=== PATIENT | female | born 1985 | race Caucasian/White ===

== ENCOUNTER 2018-06-14 08:45 | Day surgery (SDC) | payer BC, OTHER ==
[2018-06-14 09:16] VITALS: TEMP 98.4; O2SAT 100
[2018-06-14] MEDS ORDERED: Lactated Ringer's 1,000 ML IV ONE ×2 (12:00→12:34)
[2018-06-14] MEDS ORDERED: Propofol 10 mg/ml Inj (20 ML) ONE ×3 (12:03→12:43)
[2018-06-14] MEDS ORDERED: Midazolam 2 MG/2 ML VIAL ONE ×2 (12:03→12:16)
[2018-06-14] MEDS ORDERED: Lidocaine Hydrochloride 5 ML INJ ONE (12:03)
[2018-06-14 13:47] LABS: BASO # 0.1 K/uL (0.0-0.2); BASO % 1.2 % (0.0-2.0); EOS # 0.3 K/uL (0.0-0.7); EOS % 5.2 % (0.0-4.0); HEMOGLOBIN 13.2 g/dL (11.0-16.0); LYMPH # 1.4 K/uL (1.0-4.3); LYMPH % 28.4 % (20.0-40.0); MEAN CELL VOLUME 88.6 fL (81.0-99.0); MEAN CORPUSCULAR HGB CONC 33.9 g/dL (33.0-37.0); MEAN PLATELET VOLUME 10.5 fL (7.2-11.7); MONO # 0.4 K/uL (0.0-0.8); MONO % 7.1 % (0.0-10.0); NEUT % 58.1 % (50.0-75.0); RBC 4.39 Mil/uL (3.80-5.20); RED CELL DISTRIBUTION WIDTH 13.5 % (11.5-14.5); WHITE BLOOD COUNT 5.1 K/uL (4.8-10.8)
[2018-06-14 13:57] LABS: BLOOD UREA NITROGEN 6 mg/dL (7-17); CALCIUM 8.8 mg/dl (8.6-10.4); GFR NON-AFRICAN AMERICAN > 60
[2018-06-14 14:30] VITALS: BP 136/66; PULSE 69; RESP 18
== END 2018-06-14 14:05 | disposition home or self-care (01) ==
LOC: C.ENDO 08:45
PROVIDERS: ATTEND Internal Medicine Gastroenterology
DX: C18.7 Malignant neoplasm of sigmoid colon (principal); K29.70 Gastritis, unspecified, without bleeding; K64.8 Other hemorrhoids; D12.5 Benign neoplasm of sigmoid colon
CPT/HCPCS: 36415; 43239; 45385; 80048; 84703; 85025; 88305; 88313; 88342; J2250; J2704; J7120

== ENCOUNTER 2018-07-02 05:53 | Inpatient (IN) | payer OTHER ==
[2018-06-26 08:26] VITALS: BMI 19.8
[2018-07-02] MEDS ORDERED: Propofol 10 mg/ml Inj (20 ML) ONE (07:19)
[2018-07-02] MEDS ORDERED: Midazolam 2 MG/2 ML VIAL ONE (07:19)
[2018-07-02] MEDS ORDERED: Lidocaine/Epinephrine 1% 1:100000 10 ML IJ ONE (07:23)
[2018-07-02] MEDS ORDERED: Bupivacaine 0.25% 20 ML INJ IJ ONE (07:23)
[2018-07-02] MEDS ORDERED: ceFAZolin 1 gm FROZEN Premix 2 GM/100 ML ML IVPB ONE (07:24)
[2018-07-02] MEDS ORDERED: metroNIDAZOLE IV 500 mg/100 ml 500 MG/100 ML BAG ONE (07:24)
[2018-07-02] MEDS ORDERED: Rocuronium 10 mg/ml (5 ml) ONE ×2 (08:55→12:32)
[2018-07-02] MEDS ORDERED: Bupivacaine 0.5% Inj(30mL) IJ ONE (09:05)
[2018-07-02] MEDS ORDERED: Neostigmine Methylsulfate 3mg/3ml Syringe IV ONE (13:41)
[2018-07-02] MEDS ORDERED: HYDROmorphone 0.5 mg/0.5 ml ISec IVP PRN (14:36)
--- NOTE | 2018-07-02 14:41 | PCM.SURG1 ---
<Carroll Bai - Last Filed: 07/02/18 14:39> Surgeon's Initial Post Op Note - Surgeon's Notes Surgeon: Dr. Quiroz Hand Former: Richardson Type of Anesthesia: General Endo, Local Pre-Operative Diagnosis: colon CA Operative Findings: rectal CA 10cm palpable. Post-Operative Diagnosis: Colorectal CA Operation Performed: Robotic ultra low anterior colectomy with anastomosis and diverting johnson ileostomy Specimen/Specimens Removed: sigmoido rectal colon Estimated Blood Loss: EBL {In ML}: 100 Blood Products Given: N/A Drains Used: Marcos Post-Op Condition: Good Date of Surgery/Procedure: 07/02/18 Time of Surgery/Procedure: 14:41 <Flako Quiroz - Last Filed: 07/08/18 10:47> Attending/Attestation - Attestation Notes (Text): Rectal mass was palpable on deep Digital rectal exam. Approx location was around 8-9 cm from Anal verge.
[2018-07-02] MEDS: HYDROmorphone 0.5 mg/0.5 ml ISec IVP PRN ×5 (14:43→15:43)
[2018-07-02] MEDS ORDERED: Lactated Ringer's 1,000 ML IV ONE (14:45)
[2018-07-02] MEDS ORDERED: BUPIVACAINE 0.125%/0.9% NACL 600 ML IJ ONE (16:39)
[2018-07-02] MEDS: cefOXitin IV 1 gm in Dextrose 1 GM/50 ML BAG IVPB SCH ×2 (16:45→23:28)
[2018-07-02] MEDS ORDERED: Morphine Monoject Barrel PCA 1mg/ml IV PRN (17:56)
[2018-07-02] MEDS ORDERED: HYDROmorphone 1 mg/ml ISec IVP PRN (18:14)
[2018-07-02] MEDS: Dextrose 5%/0.45% NS 1,000 ML IV SCH (19:59)
[2018-07-03] MEDS: Dextrose 5%/0.45% NS 1,000 ML IV SCH ×5 (03:45→23:00)
--- NOTE | 2018-07-03 05:31 | OP ---
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 PROCEDURES DONE: 1. Robotic low-anterior resection. 2. Diverting ileostomy. 3. Bilateral ON-Q pain catheter pump placement. 4. Robotic extensive adhesinolysis. SURGEON: The procedure was done by Flako alejo MD. POND WORKER: OLAF Stallings; and Carroll Bai DO, PGY-3 resident. TYPE OF ANESTHESIA: General endotracheal tube anesthesia. ESTIMATED BLOOD LOSS: Around 50 mL. DRAIN: Marcos drain was placed in the pelvis. COMPLICATIONS: None. INTRAOPERATIVE FINDINGS: The patient has a mid-rectal, approximately 2 to 3 cm adenocarcinoma, and due to extensive desmoplastic reaction of the tumor to the vaginal wall, there was extensive adhesion as well as to the lateral pelvic wall and extensive adhesiolysis to separate the vaginal wall from the rectal wall and reaching really low rectal anastomosis, diverting ileostomy was done. It took approx 80-100 min extra for routine procedure. DESCRIPTION OF PROCEDURE: On intraoperative steps, this is a 33-year-old female who was diagnosed with a sigmoid adenocarcinoma at 12 to 15 cm, and the patient was consented for the robotic sigmoidectomy, possible open, possible LAR and possible ileostomy. The patient was brought to the OR, placed supine on the operating table. After induction of the anesthesia, the abdomen was prepped and draped in the usual sterile fashion. A supraumbilical midline incision was made. The robotic camera port was placed. Pneumo was created. Another 3/8 mm port was placed in the upper abdomen. The robot was brought in. Camera arm as well as arm 1, arm 2 were docked as well as the fourth arm was also docked. The uterus was sutured to the anterior abdominal wall using the Mikael needle, and the exploration was done. During the initial exploration, there was no tattoo identified as well as there was no tumor identified in the sigmoid as well as in the proximal rectum. The digital rectal exam was done, and the patient found to have mid-rectal adenocarcinoma, and the peritoneal dissection was done starting from the right to left side and both ureters were identified. The dissection was carried down into the TME plane. First sigmoid was resected at rectosigmoid junction and dissection was carried down into TME plane posteriorly as well as laterally through the lateral ligament. The patient was found to have extensive vascularity of the pelvis and the hemostasis was achieved. Now the dissection was carried down into the prerectal space, and the patient was found to have extensive adhesion of vaginal wall to the anterior rectal wall; and with blunt and sharp dissection, the vaginal wall was completely . There was no tumor spillage and there was no tumor extension into the vaginal wall and then rectum was excised 3 cm distal to the tumor and then a small midline incision was made in the lower abdomen and the wound protector was used and the specimen was brought out. At this time, the robot was undocked. All the instruments were taken out and Pneumo was deflated. The loop of the sigmoid colon was brought out and the anvil was attached. A Firefly was used to identify the proper blood supply of the rectum as well as the sigmoid and both blood supplies were adequate. After that anvil was placed back and Pneumo was recreated, and an end-to-end anastomosis was done using EEA. Again the anastomosis was checked for the leak, and there was no leak identified; and there was no tension and there was a good blood supply. Again, the Firefly was used to identify the blood supply and it was adequate. Due to the really low anastomosis, the ileostomy decision was made and the loop of the ileum was brought out through one of the flank port. The digital rectal exam was done intraoperatively after anastomosis and the tumor was completely excised. The anastomosis line was then approximately 4 cm from anal verge, and after that, the lower midline incision was closed in a two-layer, the fascia with #1 looped PDS as well as 0 Prolene interrupted suture, and skin with 2-0 Vicryl and 4-0 Monocryl. All the ports sites were closed, fascia with 0 Vicryl, subcu with 2-0 Vicryl, skin with the 4-0 Monocryl. At the ileostomy site, the wound was extended and ileum loop was brought out and the ileum was sutured to the fascia at the three different places and then the loop of ileum was incised and ileostomy was created, and after that, a dry sterile dressing was applied at all the places, and the stoma appliances were also applied. Before closure of the wound, the bilateral ON-Q pain catheter pump was placed and the catheter was connected to the pump, and after that, the Marcos drain that was placed during the closure in the pelvis that was sutured to the skin and dry sterile dressing was applied. Due to extensive desmoplastic reaction of tumor to surrounding pelvic structures, extensive lysis of adhesions was done. It took approx 80-100 min extra for routine procedure. The patient was extubated in the OR, sent to the postanesthesia care unit in stable condition. There was no apparent complication. Count of the instrument and gauze was correct. Flako Quiroz MD [facility]NAND[facility]
[2018-07-03] MEDS: cefOXitin IV 1 gm in Dextrose 1 GM/50 ML BAG IVPB SCH ×3 (06:03→22:40)
[2018-07-03] MEDS: Lidocaine 5% Patch TD SCH ×2 (07:25→12:55)
[2018-07-03 07:29] LABS: HEMOGLOBIN 11.9 g/dL (11.0-16.0); MEAN CELL VOLUME 88.5 fL (81.0-99.0); MEAN CORPUSCULAR HEMOGLOBIN 30.3 pg (27.0-31.0); MEAN CORPUSCULAR HGB CONC 34.2 g/dL (33.0-37.0); MEAN PLATELET VOLUME 10.5 fL (7.2-11.7); RBC 3.94 Mil/uL (3.80-5.20); RED CELL DISTRIBUTION WIDTH 13.3 % (11.5-14.5); WHITE BLOOD COUNT 5.7 K/uL (4.8-10.8)
[2018-07-03 07:38] LABS: BLOOD UREA NITROGEN 5 mg/dL (7-17); CALCIUM 7.5 mg/dl (8.6-10.4); GFR NON-AFRICAN AMERICAN > 60
[2018-07-03] MEDS ORDERED: HYDROmorphone 0.5 mg/0.5 ml ISec IVP ONE ×2 (09:09→14:30)
--- NOTE | 2018-07-03 11:12 | CP.PCM.PN ---
<Carroll Bai - Last Filed: 07/03/18 11:09> Subjective - Date & Time of Evaluation Date of Evaluation: 07/03/18 Time of Evaluation: 11:09 - Subjective Subjective: Surgery Pt seen and examined. Underwent surgery yesterday and tolearted it well. Reports flatus. Denies fever, nausea, vomiting. Pt is thirsty and hungry. Drain in place. Cohen in place. Good urine output. Pain controlled w SPIRITUAL MINISTER and onQ. Objective - Vital Signs/Intake and Output Vital Signs (last 24 hours): Temp Pulse Resp BP Pulse Ox 97.8 F 75 20 104/66 100 07/03/18 07:00 07/03/18 07:00 07/03/18 07:00 07/03/18 07:00 07/03/18 07:00 Intake and Output: 07/03/18 07/03/18 06:59 18:59 Intake Total 650 830 Output Total 900 1300 Balance -250 -470 - Medications Medications: Current Medications Acetaminophen (Tylenol 325mg Tab) 975 mg PO Q6 PRN PRN Reason: Fever >100.4 F Alprazolam (Xanax) 0.25 mg PO TID PRN PRN Reason: Anxiety Stop: 07/09/18 16:55 Last Admin: 07/03/18 10:59 Dose: 0.25 mg Enoxaparin Sodium (Lovenox) 40 mg SC DAILY [facility] Hydromorphone/Sodium Chloride (Dilaudid Heating And Ventilating Drafter) 6 mg IV Q4H PRN; Protocol PRN Reason: Pain, moderate (4-7) Last Admin: 07/03/18 09:29 Dose: 6 mg Cefoxitin Sodium (Mefoxin Iv 1 Gm Duplex) 1 gm in 50 mls @ 50 mls/hr IVPB Q8H [facility] PRN Reason: Protocol Last Admin: 07/03/18 06:03 Dose: 50 mls/hr BUPIVACAINE 0.125%/0.9% NACL (Bupivacaine-Ns 0.125% On-Q Warehouse Checker) 600 mls @ 4 mls/ hr IJ ONCE ONE Stop: 07/08/18 22:38 Last Admin: 07/02/18 17:20 Dose: 0 mls Dextrose/Sodium Chloride (Dextrose 5%/0.45% Ns 1000 Ml) 1,000 mls @ 100 mls/hr IV .Q10H [facility] Last Admin: 07/03/18 06:04 Dose: 100 mls/hr Metronidazole (Flagyl) 500 mg in 100 mls @ 100 mls/hr IVPB Q8H [facility] PRN Reason: Protocol Lidocaine (Lidoderm) 1 ea TD DAILY [facility] Last Admin: 07/03/18 07:25 Dose: 1 ea Ondansetron HCl (Zofran Inj) 4 mg IVP Q4 PRN PRN Reason: Nausea/Vomiting Pantoprazole Sodium (Protonix Inj) 40 mg IVP DAILY [facility] Pneumococcal Polyvalent Vaccine (Pneumovax 23 Vaccine) 0.5 ml IM .ONCE ONE Stop: 07/05/18 10:01 - Labs Labs: 07/03/18 06:52 07/03/18 06:52 - Constitutional Appears: No Acute Distress - Head Exam Head Exam: ATRAUMATIC, NORMAL INSPECTION, NORMOCEPHALIC - Eye Exam Eye Exam: EOMI, Normal appearance, PERRL Pupil Exam: NORMAL ACCOMODATION, PERRL - ENT Exam ENT Exam: Mucous Membranes Moist, Normal Exam - Neck Exam Neck Exam: Full ROM, Normal Inspection. absent: Lymphadenopathy - Respiratory Exam Respiratory Exam: NORMAL BREATHING PATTERN - Cardiovascular Exam Cardiovascular Exam: REGULAR RHYTHM, +S1, +S2. absent: Murmur - GI/Abdominal Exam GI & Abdominal Exam: Soft, Tenderness. absent: Distended, Firm, Guarding, Rigid Additional comments: Stoma in place: [place] . Drain in place SS. Incision C/D/I - Exam Exam: NORMAL INSPECTION Additional comments: Cohen in place yellow urine : 1200 cc since OR - Extremities Exam Extremities Exam: Full ROM. absent: Joint Swelling, Pedal Edema - Back Exam Back Exam: NORMAL INSPECTION - Neurological Exam Neurological Exam: Alert, Awake, CN II-XII Intact, Normal Gait, Oriented x3 - Psychiatric Exam Psychiatric exam: Normal Affect, Normal Mood - Skin Skin Exam: Dry, Intact, Normal Color, Warm Assessment and Plan - Assessment and Plan (Free Text) Assessment: POD 1 s/p robotic ultra low anterior colectomy with anastomosis and diverting ileostomy. - NPO may advance diet. Passing flatus -IVF -DVT/GI ppx -IS -OOB, ambulation -Pain , nausea control -MOnitor drain Will DW Dr. Quiroz <Flako Quiroz - Last Filed: 07/08/18 13:44> Objective - Vital Signs/Intake and Output Vital Signs (last 24 hours): Temp Pulse Resp BP Pulse Ox 97.3 F L 81 20 118/82 97 07/06/18 07:00 07/06/18 07:00 07/06/18 07:00 07/06/18 07:00 07/06/18 07:00 - Labs Labs: 07/03/18 06:52 07/03/18 06:52 Attending/Attestation - Attestation I have personally seen and examined this patient.: Yes I have fully participated in the care of the patient.: Yes I have reviewed all pertinent clinical information, including history, physical exam and plan: Yes Notes (Text): Pt was seen and examined at bedside Agree with above note and assessment Pt is s/p Robotic LAR and Ileostomy IV antibiotics DVT prophylaxis DC cohen Local wound care c.w current mx Plan d.w pt in detail Risk and benefit explained in detail.
[2018-07-03] MEDS: Enoxaparin 40 mg Syringe SC SCH (12:21)
[2018-07-03] MEDS: metroNIDAZOLE IV 500 mg/100 ml 500 MG/100 ML BAG IVPB SCH ×2 (14:06→20:47)
[2018-07-03] MEDS ORDERED: DiphenhydrAMINE 50 mg/ml Inj IVP STA (17:09)
[2018-07-03] MEDS: Alum-Mag Hydrox-Simethicone Susp (30 mL) PO PRN (22:39)
[2018-07-04] MEDS: metroNIDAZOLE IV 500 mg/100 ml 500 MG/100 ML BAG IVPB SCH ×2 (04:10→14:53)
[2018-07-04] MEDS: cefOXitin IV 1 gm in Dextrose 1 GM/50 ML BAG IVPB SCH (06:40)
[2018-07-04] MEDS: Oxycodone/Acetaminophen 5/325 mg Tab PO PRN ×3 (10:20→22:34)
[2018-07-04] MEDS: Enoxaparin 40 mg Syringe SC SCH (10:30)
--- NOTE | 2018-07-04 10:53 | CP.PCM.CON ---
<WilliamMarkus - Last Filed: 07/05/18 09:14> History of Present Illness - History of Present Illness History of Present Illness: Markus Thomas DO PGY-1, Roof Designer Consult Note for Hematology/Oncology for Dr. Lemus's Service This is a 33 y o female PMhx ADD, who is s/p robotic low-anterior resection, diverting ileostomy, b/l On-q pain catheter pump placement, and robotic extensive adhesiolysis POD#2. Reason for consult was colon cancer s/p low anterior colectomy. Per chart review, pt was referred to GI (Dr. Calle) in May 2018 for eval of rectal bleeding and abd pain, symptom onset 4 mos prior, occurring intermittently along with mucous in stool. Pt had increased urgency to defecate, 2 bowel movements daily along with crampy epigastric abd pain. Pt had unintentional weight loss of 10 lbs over a 5 month period. EGD and colonoscopy w/ biopsy were done on 06/14/18 for suspected lesion, biopsy showed invasive adenocarcinoma. Today, pt states she is still having abd pain post-op, but otherwise denies headache, fever, chills, chest pain, shortness of breath, n /v/d/c, urinary complaints, or other symptoms. PMhx: ADD PSurgHx: as listed above; no prior surgeries Allergies: NKDA Current meds: Tylenol 975 PO q 6h prn, Maalox q 12h prn, Xanax 0.25 mg tid prn, Bupivacaine on-q pump, Cefoxitin 1 g q8 h, Lovenox 40 mg subQ daily, Dilaudid HOSTING ENGINEER 6 mg IV q4h prn, Lidoderm patch daily, Flagyl 500 mg IVPB q8h, Zofran prn, Protonix 40 mg IVP daily Fam hx: Mom and dad alive, 2 brothers, 1 son and daughter; maternal aunt living with breast ca, otherwise no family hx of colon ca Soc hx: Former smoker, quit 5-10 y ago; social alcohol use, denies illicit drug use Review of Systems - Constitutional Constitutional: As Per HPI. absent: Chills, Fever, Headache - Cardiovascular Cardiovascular: absent: Chest Pain, Dyspnea on Exertion, Palpitations - Respiratory Respiratory: absent: Cough, Dyspnea, Pain on Inspiration, Chest Congestion - Gastrointestinal Gastrointestinal: Abdominal Pain. absent: Bloating, Constipation, Cramping, Diarrhea, Nausea, Vomiting - Genitourinary Genitourinary: absent: Dysuria, Urinary Frequency Past Patient History - Past Medical History & Family History Past Medical History?: Yes - Past Social History Smoking Status: Former Smoker - CARDIAC Hx Cardiac Disorders: No - PULMONARY Hx Respiratory Disorders: No - NEUROLOGICAL Hx Neurological Disorder: No - HEENT Hx HEENT Problems: No - RENAL Hx Chronic Kidney Disease: No - ENDOCRINE/METABOLIC Hx Endocrine Disorders: No - HEMATOLOGICAL/ONCOLOGICAL Hx Cancer: Yes - MUSCULOSKELETAL/RHEUMATOLOGICAL Hx Falls: No - GASTROINTESTINAL Hx Gastrointestinal Disorders: Yes Hx Gastritis: Yes Hx Hemorrhoids: Yes Other/Comment: RECTAL BLEEDING. HX: 2 SIGMOID POLYPS. HX: LARGE SIGMOID MASS - PSYCHIATRIC Hx Psychophysiologic Disorder: Yes Hx Anxiety: Yes Hx Substance Use: No Other/Comment: ADD - SURGICAL HISTORY Hx Surgeries: Yes Other/Comment: WISDOM TEETH EXTRACTION. 07-02-18 s/p robotic ultra low anterior colectomy with anastomosis and diverting johnson ileostomy. - ANESTHESIA Hx Anesthesia: Yes Hx Anesthesia Reactions: No Hx Malignant Hyperthermia: No Meds Allergies/Adverse Reactions: Allergies Allergy/AdvReac Type Severity Reaction Status Date / Time No Known Allergies Allergy Verified 06/14/18 09:09 - Medications Medications: Current Medications Al Hydrox/Mg Hydrox/Simethicone (Maalox Plus 30 Ml) 30 ml PO Q12 PRN PRN Reason: Indigestion / Heartburn Last Admin: 07/03/18 22:39 Dose: 30 ml Alprazolam (Xanax) 0.25 mg PO TID PRN PRN Reason: Anxiety Stop: 07/09/18 16:55 Last Admin: 07/03/18 19:08 Dose: 0.25 mg Enoxaparin Sodium (Lovenox) 40 mg SC DAILY [facility] Last Admin: 07/03/18 12:21 Dose: 40 mg Cefoxitin Sodium (Mefoxin Iv 1 Gm Duplex) 1 gm in 50 mls @ 50 mls/hr IVPB Q8H [facility] PRN Reason: Protocol Last Admin: 07/04/18 06:40 Dose: 50 mls/hr BUPIVACAINE 0.125%/0.9% NACL (Bupivacaine-Ns 0.125% On-Q Boiling Tub Operator) 600 mls @ 4 mls/ hr IJ ONCE ONE Stop: 07/08/18 22:38 Last Admin: 07/02/18 17:20 Dose: 0 mls Metronidazole (Flagyl) 500 mg in 100 mls @ 100 mls/hr IVPB Q8H [facility] PRN Reason: Protocol Last Admin: 07/04/18 04:10 Dose: 100 mls/hr Dextrose/Sodium Chloride (Dextrose 5%/0.45% Ns 1000 Ml) 1,000 mls @ 60 mls/hr IV .[id number] [facility] Last Admin: 07/03/18 23:00 Dose: 60 mls/hr Lidocaine (Lidoderm) 1 ea TD DAILY [facility] Last Admin: 07/03/18 12:55 Dose: Not Given Ondansetron HCl (Zofran Inj) 4 mg IVP Q4 PRN PRN Reason: Nausea/Vomiting Oxycodone/Acetaminophen (Percocet 5/325 Mg Tab) 1 tab PO Q4H PRN PRN Reason: Pain, moderate (4-7) Stop: 07/07/18 10:09 Last Admin: 07/04/18 10:20 Dose: 1 tab Pantoprazole Sodium (Protonix Inj) 40 mg IVP DAILY [facility] Last Admin: 07/03/18 12:20 Dose: 40 mg Pneumococcal Polyvalent Vaccine (Pneumovax 23 Vaccine) 0.5 ml IM .ONCE ONE Stop: 07/05/18 10:01 Physical Exam - Constitutional Appears: Non-toxic, No Acute Distress - Head Exam Head Exam: ATRAUMATIC, NORMAL INSPECTION - Eye Exam Eye Exam: EOMI, Normal appearance, PERRL - ENT Exam ENT Exam: Mucous Membranes Moist - Respiratory Exam Respiratory Exam: Clear to Auscultation Bilateral, NORMAL BREATHING PATTERN - Cardiovascular Exam Cardiovascular Exam: REGULAR RHYTHM, +S1, +S2 - GI/Abdominal Exam GI & Abdominal Exam: Soft. absent: Guarding, Rebound Additional comments: Ostomy bag intact, no abnormal drainage from site noted - Extremities Exam Extremities exam: Positive for: full ROM, normal capillary refill, normal inspection, pedal pulses present - Neurological Exam Neurological exam: Alert, CN II-XII Intact, Normal Gait, Oriented x3 - Psychiatric Exam Psychiatric exam: Normal Affect, Normal Mood - Skin Skin Exam: Dry, Intact, Warm Results - Vital Signs Recent Vital Signs: Last Vital Signs Temp 98.3 F 07/04/18 07:00 Pulse 91 H 07/04/18 07:00 Resp 20 07/04/18 07:00 BP 109/70 07/04/18 07:00 Pulse Ox 99 07/04/18 07:00 - Labs Result Diagrams: 07/03/18 06:52 07/03/18 06:52 Assessment & Plan - Assessment and Plan (Free Text) Assessment: This is a 33 y o female PMhx ADD, who is s/p robotic low-anterior resection, diverting ileostomy, b/l On-q pain catheter pump placement, and robotic extensive adhesiolysis POD#2. Reason for consult was colon cancer s/p low anterior colectomy. Plan: Colorectal cancer Will f/u final path and lymph node results from surgical procedure Consider adjuvant chemotherapy Consider psych eval due to pt's new dx and need for social support All options and questions/concerns were addressed with patient at bedside Will continue to follow while inpatient Thank you for allowing us to participate in the care of your patient. <Ki Lemus - Last Filed: 07/05/18 23:49> Meds - Medications Medications: Current Medications Al Hydrox/Mg Hydrox/Simethicone (Maalox Plus 30 Ml) 30 ml PO Q12 PRN PRN Reason: Indigestion / Heartburn Last Admin: 07/04/18 19:07 Dose: 30 ml Alprazolam (Xanax) 0.25 mg PO TID PRN PRN Reason: Anxiety Stop: 07/09/18 16:55 Last Admin: 07/05/18 16:56 Dose: 0.25 mg Enoxaparin Sodium (Lovenox) 40 mg SC DAILY [facility] Last Admin: 07/05/18 09:03 Dose: Not Given BUPIVACAINE 0.125%/0.9% NACL (Bupivacaine-Ns 0.125% On-Q Boiling Tub Operator) 600 mls @ 4 mls/ hr IJ ONCE ONE Stop: 07/08/18 22:38 Last Admin: 07/02/18 17:20 Dose: 0 mls Lidocaine (Lidoderm) 1 ea TD DAILY [facility] Last Admin: 07/05/18 09:02 Dose: Not Given Lorazepam (Ativan) 1 mg IVP Q6H PRN PRN Reason: Anxiety Last Admin: 07/05/18 22:43 Dose: 1 mg Oxycodone/Acetaminophen (Percocet 5/325 Mg Tab) 1 tab PO Q4H PRN PRN Reason: Pain, moderate (4-7) Stop: 07/07/18 10:09 Last Admin: 07/05/18 20:06 Dose: 1 tab Results - Vital Signs Recent Vital Signs: Last Vital Signs Temp 98.2 F 07/05/18 07:56 Pulse 70 07/05/18 07:56 Resp 20 07/05/18 07:56 BP 123/76 07/05/18 07:56 Pulse Ox 99 07/05/18 07:56 - Labs Result Diagrams: 07/03/18 06:52 07/03/18 06:52 Assessment & Plan - Assessment and Plan (Free Text) Plan: Pt seen and examined, agree with Dr. Thomas's consult. 33 year old female with a history of colorectal cancer s/p LAR. Awaiting pathology report to determine if patient will require adjuvant chemotherapy. CEA not elevated. Thank you for this interesting consult.
[2018-07-04] MEDS ORDERED: HYDROmorphone 0.5 mg/0.5 ml ISec IVP ONE (11:00)
[2018-07-04] MEDS: Lidocaine 5% Patch TD SCH (12:56)
[2018-07-04] MEDS ORDERED: metroNIDAZOLE IV 500 mg/100 ml 500 MG/100 ML BAG IVPB SCH (14:00)
[2018-07-04] MEDS: HYDROmorphone 0.5 mg/0.5 ml ISec IVP PRN ×2 (16:27→19:50)
[2018-07-04] MEDS: Dextrose 5%/0.45% NS 1,000 ML IV SCH (16:34)
--- NOTE | 2018-07-04 17:36 | CP.PCM.PN ---
<Kevin Perrea - Last Filed: 07/04/18 17:39> Subjective - Date & Time of Evaluation Date of Evaluation: 07/04/18 Time of Evaluation: 11:00 - Subjective Subjective: Patient see and examined. No acute events over night. BM output into diverting ostomy. Objective - Vital Signs/Intake and Output Vital Signs (last 24 hours): Temp Pulse Resp BP Pulse Ox 97.6 F 85 18 109/71 100 07/04/18 15:59 07/04/18 15:59 07/04/18 15:59 07/04/18 15:59 07/04/18 15:59 Intake and Output: 07/04/18 07/04/18 06:59 18:59 Intake Total 1800 1710 Output Total 1190 1700 Balance 610 10 - Medications Medications: Current Medications Al Hydrox/Mg Hydrox/Simethicone (Maalox Plus 30 Ml) 30 ml PO Q12 PRN PRN Reason: Indigestion / Heartburn Last Admin: 07/03/18 22:39 Dose: 30 ml Alprazolam (Xanax) 0.25 mg PO TID PRN PRN Reason: Anxiety Stop: 07/09/18 16:55 Last Admin: 07/04/18 14:36 Dose: 0.25 mg Enoxaparin Sodium (Lovenox) 40 mg SC DAILY [facility] Last Admin: 07/04/18 10:30 Dose: 40 mg Hydromorphone HCl (Dilaudid) 0.5 mg IVP Q3 PRN PRN Reason: Pain, severe (8-10) Last Admin: 07/04/18 16:27 Dose: 0.5 mg BUPIVACAINE 0.125%/0.9% NACL (Bupivacaine-Ns 0.125% On-Q Sales Trainee) 600 mls @ 4 mls/ hr IJ ONCE ONE Stop: 07/08/18 22:38 Last Admin: 07/02/18 17:20 Dose: 0 mls Dextrose/Sodium Chloride (Dextrose 5%/0.45% Ns 1000 Ml) 1,000 mls @ 60 mls/hr IV .[id number] [facility] Last Admin: 07/04/18 16:34 Dose: 60 mls/hr Metronidazole (Flagyl) 500 mg in 100 mls @ 100 mls/hr IVPB Q8H [facility] PRN Reason: Protocol Last Admin: 07/04/18 16:21 Dose: Not Given Lidocaine (Lidoderm) 1 ea TD DAILY [facility] Last Admin: 07/04/18 12:56 Dose: Not Given Ondansetron HCl (Zofran Inj) 4 mg IVP Q4 PRN PRN Reason: Nausea/Vomiting Oxycodone/Acetaminophen (Percocet 5/325 Mg Tab) 1 tab PO Q4H PRN PRN Reason: Pain, moderate (4-7) Stop: 07/07/18 10:09 Last Admin: 07/04/18 12:53 Dose: 1 tab Pantoprazole Sodium (Protonix Inj) 40 mg IVP DAILY [facility] Last Admin: 07/04/18 10:30 Dose: 40 mg Pneumococcal Polyvalent Vaccine (Pneumovax 23 Vaccine) 0.5 ml IM .ONCE ONE Stop: 07/05/18 10:01 - Labs Labs: 07/03/18 06:52 07/03/18 06:52 - Constitutional Appears: No Acute Distress - Head Exam Head Exam: NORMOCEPHALIC - Eye Exam Eye Exam: Normal appearance - Respiratory Exam Respiratory Exam: NORMAL BREATHING PATTERN - Cardiovascular Exam Cardiovascular Exam: +S1, +S2 - GI/Abdominal Exam GI & Abdominal Exam: Soft - Neurological Exam Neurological Exam: Alert, Awake, Oriented x3 - Psychiatric Exam Psychiatric exam: Normal Mood - Skin Skin Exam: Dry, Intact, Warm Assessment and Plan - Assessment and Plan (Free Text) Assessment: 33F w/ colon CA s/p robotic ultra LAR w/ diverting ileostomy POD2 Plan: -Adv to full liquids -D/C OWNER CONSULTING ENGINEER -PO analgesics -Encourage incentive spirometer use -D/C cohen -Encourage ambulation -DVT ppx -D/w Dr. Richie March PGY3 <Flako Quiroz - Last Filed: 07/08/18 14:00> Objective - Vital Signs/Intake and Output Vital Signs (last 24 hours): Temp Pulse Resp BP Pulse Ox 97.3 F L 81 20 118/82 97 07/06/18 07:00 07/06/18 07:00 07/06/18 07:00 07/06/18 07:00 07/06/18 07:00 - Labs Labs: 07/03/18 06:52 07/03/18 06:52 Attending/Attestation - Attestation I have personally seen and examined this patient.: Yes I have fully participated in the care of the patient.: Yes I have reviewed all pertinent clinical information, including history, physical exam and plan: Yes Notes (Text): Pt was seen and examined at bedside Agree with above note and assessment Pt is feeling much better Ileostomy is functioning Local wound care c.w current mx Plan d.w pt in detail
[2018-07-04] MEDS: Alum-Mag Hydrox-Simethicone Susp (30 mL) PO PRN (19:07)
[2018-07-05] MEDS: Oxycodone/Acetaminophen 5/325 mg Tab PO PRN ×4 (02:29→20:06)
[2018-07-05 03:25] VITALS: RESP 20
[2018-07-05] MEDS: Lidocaine 5% Patch TD SCH (09:02)
[2018-07-05] MEDS: Enoxaparin 40 mg Syringe SC SCH (09:03)
--- NOTE | 2018-07-05 09:21 | CP.PCM.PN ---
<Kevin Perera - Last Filed: 07/05/18 09:21> Subjective - Date & Time of Evaluation Date of Evaluation: 07/05/18 Time of Evaluation: 06:15 - Subjective Subjective: Patient seen and examined. No acute events over night. Voiding. Tolerating diet. +BM into ostomy. Complains of mild incisional pain. Objective - Vital Signs/Intake and Output Vital Signs (last 24 hours): Temp Pulse Resp BP Pulse Ox 98.2 F 70 20 123/76 99 07/05/18 07:56 07/05/18 07:56 07/05/18 07:56 07/05/18 07:56 07/05/18 07:56 Intake and Output: 07/05/18 07/05/18 06:59 18:59 Intake Total 1400 Output Total 1150 Balance 250 - Medications Medications: Current Medications Al Hydrox/Mg Hydrox/Simethicone (Maalox Plus 30 Ml) 30 ml PO Q12 PRN PRN Reason: Indigestion / Heartburn Last Admin: 07/04/18 19:07 Dose: 30 ml Alprazolam (Xanax) 0.25 mg PO TID PRN PRN Reason: Anxiety Stop: 07/09/18 16:55 Last Admin: 07/05/18 01:26 Dose: 0.25 mg Enoxaparin Sodium (Lovenox) 40 mg SC DAILY [facility] Last Admin: 07/05/18 09:03 Dose: Not Given BUPIVACAINE 0.125%/0.9% NACL (Bupivacaine-Ns 0.125% On-Q Hospitality Team Member) 600 mls @ 4 mls/ hr IJ ONCE ONE Stop: 07/08/18 22:38 Last Admin: 07/02/18 17:20 Dose: 0 mls Lidocaine (Lidoderm) 1 ea TD DAILY [facility] Last Admin: 07/05/18 09:02 Dose: Not Given Lorazepam (Ativan) 1 mg IVP Q6H PRN PRN Reason: Anxiety Oxycodone/Acetaminophen (Percocet 5/325 Mg Tab) 1 tab PO Q4H PRN PRN Reason: Pain, moderate (4-7) Stop: 07/07/18 10:09 Last Admin: 07/05/18 08:57 Dose: 1 tab Pneumococcal Polyvalent Vaccine (Pneumovax 23 Vaccine) 0.5 ml IM .ONCE ONE Stop: 07/05/18 10:01 Last Admin: 07/05/18 09:03 Dose: Not Given - Labs Labs: 07/03/18 06:52 07/03/18 06:52 - Constitutional Appears: No Acute Distress - Head Exam Head Exam: NORMOCEPHALIC - Eye Exam Eye Exam: Normal appearance - ENT Exam ENT Exam: Mucous Membranes Moist - Cardiovascular Exam Cardiovascular Exam: +S1, +S2 - GI/Abdominal Exam GI & Abdominal Exam: Soft, Tenderness - Neurological Exam Neurological Exam: Alert, Awake, Oriented x3 - Psychiatric Exam Psychiatric exam: Normal Mood - Skin Skin Exam: Normal Color, Warm Assessment and Plan - Assessment and Plan (Free Text) Assessment: 33F w/ colon CA s/p robotic ultra LAR w/ diverting ileostomy POD3 Plan: -Reg diet -PO analgesics -Encourage incentive spirometer use -Encourage ambulation -DVT ppx -D/w Dr. Quiroz -Plan for D/C tomorrow 07/06 Joaquim PGY3 <Flako Quiroz - Last Filed: 07/08/18 14:09> Objective - Vital Signs/Intake and Output Vital Signs (last 24 hours): Temp Pulse Resp BP Pulse Ox 97.3 F L 81 20 118/82 97 07/06/18 07:00 07/06/18 07:00 07/06/18 07:00 07/06/18 07:00 07/06/18 07:00 - Labs Labs: 07/03/18 06:52 07/03/18 06:52 Attending/Attestation - Attestation I have personally seen and examined this patient.: Yes I have fully participated in the care of the patient.: Yes I have reviewed all pertinent clinical information, including history, physical exam and plan: Yes Notes (Text): Pt was seen and examined at bedside Agree with above note and assessment Pt is improved clinically Path report discussed with pt DC plan DC drain and On Q tomorrow f/u as out pt Plan d.w pt in detail Risk and benefit explained in detail.
[2018-07-05] MEDS ORDERED: Pneumococcal 23-Valent Vaccine IM ONE (10:00)
--- NOTE | 2018-07-05 23:50 | CP.PCM.PN ---
Subjective - Date & Time of Evaluation Date of Evaluation: 07/05/18 Time of Evaluation: 19:00 - Subjective Subjective: No complaints. Objective - Vital Signs/Intake and Output Vital Signs (last 24 hours): Temp Pulse Resp BP Pulse Ox 98.2 F 70 20 123/76 99 07/05/18 07:56 07/05/18 07:56 07/05/18 07:56 07/05/18 07:56 07/05/18 07:56 Intake and Output: 07/05/18 07/06/18 18:59 06:59 Intake Total 240 Output Total 980 220 Balance -740 -220 - Medications Medications: Current Medications Al Hydrox/Mg Hydrox/Simethicone (Maalox Plus 30 Ml) 30 ml PO Q12 PRN PRN Reason: Indigestion / Heartburn Last Admin: 07/04/18 19:07 Dose: 30 ml Alprazolam (Xanax) 0.25 mg PO TID PRN PRN Reason: Anxiety Stop: 07/09/18 16:55 Last Admin: 07/05/18 16:56 Dose: 0.25 mg Enoxaparin Sodium (Lovenox) 40 mg SC DAILY [facility] Last Admin: 07/05/18 09:03 Dose: Not Given BUPIVACAINE 0.125%/0.9% NACL (Bupivacaine-Ns 0.125% On-Q Hyperion Analyst) 600 mls @ 4 mls/ hr IJ ONCE ONE Stop: 07/08/18 22:38 Last Admin: 07/02/18 17:20 Dose: 0 mls Lidocaine (Lidoderm) 1 ea TD DAILY [facility] Last Admin: 07/05/18 09:02 Dose: Not Given Lorazepam (Ativan) 1 mg IVP Q6H PRN PRN Reason: Anxiety Last Admin: 07/05/18 22:43 Dose: 1 mg Oxycodone/Acetaminophen (Percocet 5/325 Mg Tab) 1 tab PO Q4H PRN PRN Reason: Pain, moderate (4-7) Stop: 07/07/18 10:09 Last Admin: 07/05/18 20:06 Dose: 1 tab - Labs Labs: 07/03/18 06:52 07/03/18 06:52 - Head Exam Head Exam: ATRAUMATIC - Eye Exam Eye Exam: Normal appearance - ENT Exam ENT Exam: Mucous Membranes Dry - Respiratory Exam Respiratory Exam: NORMAL BREATHING PATTERN - Cardiovascular Exam Cardiovascular Exam: +S1, +S2 - GI/Abdominal Exam GI & Abdominal Exam: Normal Bowel Sounds - Extremities Exam Extremities Exam: Normal Inspection - Neurological Exam Neurological Exam: Oriented x3 - Psychiatric Exam Psychiatric exam: Normal Affect, Normal Mood Assessment and Plan (1) Colorectal cancer Assessment & Plan: pT2 N0 M0 - stage 1 does not require adjuvant chemotherapy outpatient surveillance Status: Acute
[2018-07-06] MEDS: Oxycodone/Acetaminophen 5/325 mg Tab PO PRN ×2 (05:45→10:04)
--- NOTE | 2018-07-06 07:54 | CP.PCM.DIS ---
Provider - Provider Date of Admission: 07/02/18 05:53 Attending physician: Flako Quiroz MD Consults: Heme Onc Time Spent in preparation of Discharge (in minutes): 20 Hospital Course - Lab Results Lab Results: Most Recent Lab Values WBC 5.7 K/uL (4.8-10.8) 07/03/18 06:52 RBC 3.94 Mil/uL (3.80-5.20) 07/03/18 06:52 Hgb 11.9 g/dL (11.0-16.0) 07/03/18 06:52 Hct 34.8 % (34.0-47.0) 07/03/18 06:52 MCV 88.5 fL (81.0-99.0) 07/03/18 06:52 MCH 30.3 pg (27.0-31.0) 07/03/18 06:52 MCHC 34.2 g/dL (33.0-37.0) 07/03/18 06:52 RDW 13.3 % (11.5-14.5) 07/03/18 06:52 Plt Count 178 K/uL (130-400) 07/03/18 06:52 MPV 10.5 fL (7.2-11.7) 07/03/18 06:52 Sodium 137 mmol/L (132-148) 07/03/18 06:52 Potassium 3.8 mmol/L (3.6-5.2) 07/03/18 06:52 Chloride 101 mmol/L (98-107) 07/03/18 06:52 Carbon Dioxide 27 mmol/L (22-30) 07/03/18 06:52 Anion Gap 13 (10-20) 07/03/18 06:52 BUN 5 mg/dL (7-17) L 07/03/18 06:52 Creatinine 0.6 mg/dL (0.7-1.2) L 07/03/18 06:52 Est GFR ( Amer) > 60 07/03/18 06:52 Est GFR (Non-Af Amer) > 60 07/03/18 06:52 Random Glucose 117 mg/dL (65-105) H 07/03/18 06:52 Calcium 7.5 mg/dl (8.6-10.4) L 07/03/18 06:52 Blood Type O POSITIVE 07/02/18 07:02 Antibody Screen Negative 07/02/18 07:02 - Hospital Course Hospital Course: Patient came in on 07/02 for elective robotic ultra low anterior resection wit diverting ileostomy. Patient's post-op course was uneventful. She is currently tolerating regular diet. Heme onc was consulted. As per heme onc recs pT2 N0 M0 - stage 1 does not require adjuvant chemotherapy only outpatient surveillance. Patient to follow up in office in one week. *Above is a brief summary of patient's hospital stay for more details please refer to patient's medical record* Discharge Exam - Head Exam Head Exam: ATRAUMATIC, NORMOCEPHALIC - Eye Exam Eye Exam: Normal appearance - ENT Exam ENT Exam: Mucous Membranes Moist - Respiratory Exam Respiratory Exam: NORMAL BREATHING PATTERN - Cardiovascular Exam Cardiovascular Exam: +S1, +S2 - GI/Abdominal Exam GI & Abdominal Exam: Soft - Neurological Exam Neurological exam: Alert, Oriented x3 - Psychiatric Exam Psychiatric exam: Normal Mood - Skin Skin Exam: Dry, Intact, Warm Discharge Plan - Discharge Medications Prescriptions: RX: ALPRAZolam [Xanax] 0.5 mg PO DAILY PRN #7 tab PRN Reason: Insomnia oxyCODONE/Acetaminophen [Percocet 5/325 mg Tab] 1 ea PO Q6H PRN 1 Days #20 tab PRN Reason: Pain, Mild (1-3) RX: oxyCODONE/Acetaminophen [Percocet 5/325 mg Tab] 1 tab PO Q4H PRN #20 tab PRN Reason: Pain, Moderate (4-7) - Follow Up Plan Condition: GOOD Disposition: HOME/ ROUTINE Instructions: Colon and Rectal Cancer (DC), Ileostomy Care Additional Instructions: Please follow up with Flako Mike in office Monday07/10/18
[2018-07-06 08:02] VITALS: BP 118/82; PULSE 81; TEMP 97.3; O2SAT 97
[2018-07-06] MEDS: Lidocaine 5% Patch TD SCH (10:22)
[2018-07-06] MEDS: Enoxaparin 40 mg Syringe SC SCH (10:22)
== END 2018-07-06 11:30 | disposition home or self-care (01) | DRG 330 ==
LOC: C.9S 05:53 → C.6T 14:05
PROVIDERS: ADMIT Surgery Surgical Critical Care; ATTEND Surgery Surgical Critical Care
PROC: 0DTN4ZZ Resection of Sigmoid Colon, Percutaneous Endoscopic Approach (ICD-10-PCS; 2018-07-02)
PROC: 0D1B4Z4 Bypass Ileum to Cutaneous, Percutaneous Endoscopic Approach (ICD-10-PCS; 2018-07-02)
PROC: 0DNW4ZZ Release Peritoneum, Percutaneous Endoscopic Approach (ICD-10-PCS; 2018-07-02)
PROC: 0DTP4ZZ Resection of Rectum, Percutaneous Endoscopic Approach (ICD-10-PCS; principal; 2018-07-02 07:30)
DX: C19 Malignant neoplasm of rectosigmoid junction (principal); C18.7 Malignant neoplasm of sigmoid colon; Z87.891 Personal history of nicotine dependence; Z68.20 Body mass index [BMI] 20.0-20.9, adult

== ENCOUNTER 2018-07-08 03:52 | Observation (INO) | payer OTHER ==
[2018-07-08 03:53] VITALS: BMI 19.8
[2018-07-08] MEDS ORDERED: Sodium Chloride 0.9% 1,000 ML IV ONE (04:29)
--- NOTE | 2018-07-08 04:29 | C.PDOC ---
History Of Present Illness is 6 days post colon resection for colon ca, and was doing fine until last night when she developed severe luq abd pain, intermittent with nausea and some vomiting. Took some oxycodone without any relief. No f/c/ Time Seen by Provider: 07/08/18 04:29 Chief Complaint (Nursing): Abdominal Pain History Per: Patient History/Exam Limitations: no limitations Onset/Duration Of Symptoms: Hrs Current Symptoms Are (Timing): Still Present Context: Other Severity: Moderate Pain Scale Rating Of: 5 Location Of Pain/Discomfort: LUQ Radiation Of Pain To:: None Quality Of Discomfort: Sharp, Cramping, Stabbing Associated Symptoms: Nausea, Vomiting. denies: Fever, Chills Exacerbating Factors: None Alleviating Factors: None Last Bowel Movement: Other (ileostomy draining) Recent travel outside of the [place]: No Additional History Per: Family Abnormal Vaginal Bleeding: No Past Medical History Reviewed: Historical Data, Nursing Documentation, Vital Signs Vital Signs: Last Vital Signs Temp 98.4 F 07/08/18 03:59 Pulse 82 07/08/18 03:59 Resp 16 07/08/18 03:59 BP 140/99 H 07/08/18 03:59 Pulse Ox 100 07/08/18 06:42 - Medical History PMH: Anxiety, Colonic Polyps, Gastritis Denies: Chronic Kidney Disease Surgical History: Endoscopy Family History: States: No Known Family Hx - Social History Hx Alcohol Use: Yes (socially) Hx Substance Use: No Review Of Systems Constitutional: Negative for: Fever, Chills Cardiovascular: Negative for: Chest Pain Respiratory: Negative for: Shortness of Breath Gastrointestinal: Positive for: Nausea, Vomiting, Abdominal Pain Genitourinary: Negative for: Dysuria Musculoskeletal: Negative for: Back Pain Skin: Negative for: Rash Neurological: Negative for: Weakness Psych: Positive for: Anxiety Physical Exam - Physical Exam Appears: Non-toxic Skin: Warm, Dry Head: Normacephalic Oral Mucosa: Moist Neck: Supple Chest: Symmetrical Cardiovascular: Rhythm Regular Respiratory: No Rales, No Rhonchi, No Wheezing Gastrointestinal/Abdominal: Bowel Sounds (tympanic to percussion), Soft, Tenderness, No Distention, No Guarding, No Rebound, Other (draining ileostomy right) Back: Normal Inspection Extremity: Normal ROM Extremity: Bilateral: Atraumatic Pulses: Left Dorsalis Pedis: Normal, Right Dorsalis Pedis: Normal Neurological/Psych: Oriented x3 Gait: Steady ED Course And Treatment - Laboratory Results Result Diagrams: 07/08/18 04:41 07/08/18 04:41 O2 Sat by Pulse Oximetry: 100 Pulse Ox Interpretation: Normal - Radiology CXR: Interpreted by Me, Viewed By Me CXR Interpretation: No: Infiltrates, Fracture, Pnemothorax - Other Rad obstr X-Ray: Interpreted by Me, Viewed By Me Interpretation: ileus, no free air Progress Note: 5:40 am spoke with the residential treatment counselor. will come and see the pt Disposition Counseled Patient/Family Regarding: Studies Performed, Diagnosis - Disposition Disposition Time: 04:29 Condition: FAIR Forms: [facility] (Syrian) - Clinical Impression Clinical Impression: Abdominal pain, Ileus following gastrointestinal surgery Physician Patient Turnover Patient Signed Over To: Manas Correia Handoff Comments: pending surgical evaluation and disposition
[2018-07-08 04:44] LABS: BASO % 0.4 % (0.0-2.0); EOS # 0.2 K/uL (0.0-0.7); EOS % 3.5 % (0.0-4.0); HEMOGLOBIN 13.6 g/dL (11.0-16.0); LYMPH # 0.9 K/uL (1.0-4.3); LYMPH % 13.9 % (20.0-40.0); MEAN CELL VOLUME 86.1 fL (81.0-99.0); MEAN CORPUSCULAR HEMOGLOBIN 29.5 pg (27.0-31.0); MEAN CORPUSCULAR HGB CONC 34.3 g/dL (33.0-37.0); MEAN PLATELET VOLUME 9.4 fL (7.2-11.7); MONO # 0.5 K/uL (0.0-0.8); MONO % 7.5 % (0.0-10.0); NEUT # 4.9 K/uL (1.8-7.0); NEUT % 74.7 % (50.0-75.0); NRBC % 0.1 % (0.0-2.0); RBC 4.62 Mil/uL (3.80-5.20); RED CELL DISTRIBUTION WIDTH 13.3 % (11.5-14.5); WHITE BLOOD COUNT 6.6 K/uL (4.8-10.8)
[2018-07-08 04:53] LABS: INR 1.1; PROTHROMBIN TIME 11.6 SECONDS (9.7-12.2)
[2018-07-08 04:54] LABS: VENOUS BLOOD GAS BASE EXCESS 1.5 mmol/L (0.0-2.0); VENOUS BLOOD GAS PCO2 34 mmHg (40-60); VENOUS BLOOD GAS PO2 87 mm/Hg (30-55); VENOUS BLOOD PH 7.47 (7.32-7.43)
[2018-07-08 05:21] LABS: ALB/GLOB RATIO 1.4 (1.0-2.1); ALBUMIN 3.8 g/dL (3.5-5.0); ALT/SGPT 75 U/L (9-52); AST/SGOT 68 U/L (14-36); BLOOD UREA NITROGEN 5 mg/dL (7-17); CALCIUM 9.6 mg/dl (8.6-10.4); GFR NON-AFRICAN AMERICAN > 60; LIPASE 42 U/L (23-300)
[2018-07-08 06:22] LABS: SQUAMOUS EPITHIAL 28 /hpf (0-5); URINE BACTERIA FEW (<OCC); URINE BILIRUBIN NEGATIVE (NEGATIVE); URINE BLOOD 2+ (NEGATIVE); URINE CLARITY Hazy (Clear); URINE COLOR Yellow (YELLOW); URINE GLUCOSE (UA) NORMAL (Normal); URINE LEUKOCYTE ESTERASE 3+ Leu/uL (Negative); URINE PROTEIN NEGATIVE (NEGATIVE); URINE UROBILINOGEN NORMAL mg/dL (0.2-1.0)
[2018-07-08] MEDS: Lactated Ringer's 1,000 ML IV SCH ×2 (08:48→18:53)
--- NOTE | 2018-07-08 10:45 | CP.PCM.HP ---
<Kevin Perera - Last Filed: 07/08/18 15:25> History of Present Illness - History of Present Illness History of Present Illness: 33F with PMHx of colon CA s/p Robotic ultra LAR diverting ileostomy done on 2017 reports to [facility] ED with complaints of abdominal pain. Patient states abdominal pain began about two days ago. States analgesics did not alleviate pain. Reports feeling nauseous. Patient mentioned she has had BM into ostomy for the past two days. Abd Xray was done which demonstrated an ileus. Denies headache/dizzines, fever/chills, chest pain, SOB. Present on Admission - Present on Admission Any Indicators Present on Admission: No Review of Systems - Review of Systems Review of Systems: 12 pt ROS unremarkable except as stated in HPI Past Patient History - Infectious Disease Hx of Infectious Diseases: None - Past Medical History & Family History Past Medical History?: Yes - Past Social History Smoking Status: Former Smoker - CARDIAC Hx Cardiac Disorders: No - PULMONARY Hx Respiratory Disorders: No - NEUROLOGICAL Hx Neurological Disorder: No - HEENT Hx HEENT Problems: No - RENAL Hx Chronic Kidney Disease: No - ENDOCRINE/METABOLIC Hx Endocrine Disorders: No - HEMATOLOGICAL/ONCOLOGICAL Hx Cancer: Yes - MUSCULOSKELETAL/RHEUMATOLOGICAL Hx Falls: No - GASTROINTESTINAL Hx Gastritis: Yes - PSYCHIATRIC Hx Anxiety: Yes Hx Substance Use: No - SURGICAL HISTORY Hx Surgeries: Yes Other/Comment: WISDOM TEETH EXTRACTION. 07-02-18 s/p robotic ultra low anterior colectomy with anastomosis and diverting johnson ileostomy. - ANESTHESIA Hx Anesthesia: Yes Hx Anesthesia Reactions: No Hx Malignant Hyperthermia: No Meds Allergies/Adverse Reactions: Allergies Allergy/AdvReac Type Severity Reaction Status Date / Time No Known Allergies Allergy Verified 06/14/18 09:09 Physical Exam - Constitutional Appears: No Acute Distress - Head Exam Head Exam: NORMOCEPHALIC - Eye Exam Eye Exam: Normal appearance - ENT Exam ENT Exam: Mucous Membranes Moist - Respiratory Exam Respiratory Exam: NORMAL BREATHING PATTERN - Cardiovascular Exam Cardiovascular Exam: +S1, +S2 - GI/Abdominal Exam GI & Abdominal Exam: Soft. absent: Distended, Firm, Guarding, Rebound, Rigid, Tenderness - Neurological Exam Neurological exam: Alert, Oriented x3 - Psychiatric Exam Psychiatric exam: Normal Mood - Skin Skin Exam: Dry, Intact, Warm Results - Vital Signs Recent Vital Signs: Last Vital Signs Temp 98.0 F 07/08/18 10:34 Pulse 74 07/08/18 10:34 Resp 15 07/08/18 10:34 BP 118/71 07/08/18 10:34 Pulse Ox 98 07/08/18 10:34 - Labs Result Diagrams: 07/08/18 04:41 07/08/18 04:41 Labs: Laboratory Results - last 24 hr 07/08/18 07/08/18 07/08/18 04:41 04:41 04:41 WBC 6.6 RBC 4.62 Hgb 13.6 Hct 39.8 MCV 86.1 D MCH 29.5 MCHC 34.3 RDW 13.3 Plt Count 243 MPV 9.4 Neut % (Auto) 74.7 Lymph % (Auto) 13.9 L [place] % (Auto) 7.5 Eos % (Auto) 3.5 Baso % (Auto) 0.4 Neut # (Auto) 4.9 Lymph # (Auto) 0.9 L [place] # (Auto) 0.5 Eos # (Auto) 0.2 Baso # (Auto) 0.0 PT 11.6 INR 1.1 APTT 36 H pO2 VBG pH VBG pCO2 VBG HCO3 VBG Total CO2 VBG O2 Sat (Calc) VBG Base Excess VBG Potassium Glucose Lactate Sodium 139 Potassium 3.7 Chloride 101 Carbon Dioxide 26 Anion Gap 15 BUN 5 L Creatinine 0.6 L Est GFR ( Amer) > 60 Est GFR (Non-Af Amer) > 60 Random Glucose 101 Calcium 9.6 Total Bilirubin 0.6 AST 68 H ALT 75 H Alkaline Phosphatase 57 Total Protein 6.5 Albumin 3.8 Globulin 2.7 Albumin/Globulin Ratio 1.4 Lipase 42 Venous Blood Potassium Urine Color Urine Clarity Urine pH Ur Specific [place] Urine Protein Urine Glucose (UA) Urine Ketones Urine Blood Urine Nitrate Urine Bilirubin Urine Urobilinogen Ur Leukocyte Esterase Urine WBC (Auto) Urine RBC (Auto) Ur Squamous Epith Cells Urine Bacteria Hyaline Casts Urine Yeast (Budding) 07/08/18 07/08/18 04:50 06:10 WBC RBC Hgb Hct MCV MCH MCHC RDW Plt Count MPV Neut % (Auto) Lymph % (Auto) [place] % (Auto) Eos % (Auto) Baso % (Auto) Neut # (Auto) Lymph # (Auto) [place] # (Auto) Eos # (Auto) Baso # (Auto) PT INR APTT pO2 87 H VBG pH 7.47 H VBG pCO2 34 L VBG HCO3 26.1 VBG Total CO2 25.7 VBG O2 Sat (Calc) 98.2 H VBG Base Excess 1.5 VBG Potassium 3.4 L Glucose 95 Lactate 0.6 L Sodium 137.0 Potassium Chloride 106.0 Carbon Dioxide Anion Gap BUN Creatinine Est GFR ( Amer) Est GFR (Non-Af Amer) Random Glucose Calcium Total Bilirubin AST ALT Alkaline Phosphatase Total Protein Albumin Globulin Albumin/Globulin Ratio Lipase Venous Blood Potassium 3.4 L Urine Color Yellow Urine Clarity Hazy Urine pH 6.0 Ur Specific [place] 1.009 Urine Protein Negative Urine Glucose (UA) Normal Urine Ketones Trace Urine Blood 2+ H Urine Nitrate Negative Urine Bilirubin Negative Urine Urobilinogen Normal Ur Leukocyte Esterase 3+ H Urine WBC (Auto) 57 H Urine RBC (Auto) 12 H Ur Squamous Epith Cells 28 H Urine Bacteria Few H Hyaline Casts 3-5 H Urine Yeast (Budding) Few H Assessment & Plan - Assessment and Plan (Free Text) Assessment: 33F s/p Robot ultra LAR diverting ileostomy POD 6 presents with post operative ileus Plan: -NPO -IVF -Analgesics prn -Anti-emetic prn -Encourage ambulation -DVT ppx -Monitor bowel function -D/w Dr. Richie March PGY3 <Flako Quiroz B - Last Filed: 07/10/18 17:30> Results - Vital Signs Recent Vital Signs: Last Vital Signs Temp 98.2 F 07/10/18 07:00 Pulse 70 07/10/18 07:00 Resp 20 07/10/18 07:00 BP 118/74 07/10/18 07:00 Pulse Ox 97 07/10/18 07:00 - Labs Result Diagrams: 07/10/18 06:45 07/10/18 06:45 Labs: Laboratory Results - last 24 hr 07/10/18 07/10/18 06:45 06:45 WBC 4.6 L RBC 3.88 Hgb 11.5 D Hct 33.4 L MCV 86.0 MCH 29.7 MCHC 34.5 RDW 13.1 Plt Count 214 MPV 9.5 Sodium 137 Potassium 3.9 Chloride 103 Carbon Dioxide 26 Anion Gap 12 BUN 7 Creatinine 0.5 L Est GFR ( Amer) > 60 Est GFR (Non-Af Amer) > 60 Random Glucose 78 Calcium 8.7 Phosphorus 3.2 Magnesium 1.7 Attending/Attestation - Attestation I have personally seen and examined this patient.: Yes I have fully participated in the care of the patient.: Yes I have reviewed all pertinent clinical information: Yes Notes (Text): Pt was seen and examined at bedside Agree with above note and assessment Pt with abdominal distention and discomfort Labs and radiology reviewed Ass: Intestinal ileus Plan : NPO, IVF Replace K Avoid narcotics Plan d.w pt in detail Risk and benefit explained in detail.
--- NOTE | 2018-07-08 11:35 | RAD ---
Date of service: 07/08/2018 PROCEDURE: Radiographs of the chest and abdomen (obstructive series) HISTORY: abd pain,s/p colon resection COMPARISON: Chest radiograph dated 06/26/2018; no prior abdominal imaging. TECHNIQUE: AP radiograph of the chest, with upright and supine radiographs of the abdomen. FINDINGS: CHEST: Lungs: Clear. Cardiovascular: Normal size heart. No pulmonary vascular congestion. Pleura: No pleural fluid. No pneumothorax. Other findings: None. ABDOMEN AND PELVIS: Bowel: Gaseous distention of bowel loops with air-fluid levels. Free air: None. Bones: Unremarkable. Other findings: Right lower quadrant ostomy. IMPRESSION: Gaseous distention of bowel loops with air-fluid levels.
[2018-07-08] MEDS: Enoxaparin 40 mg Syringe SC SCH (12:29)
[2018-07-09] MEDS: Lactated Ringer's 1,000 ML IV SCH ×2 (05:35→15:47)
[2018-07-09] MEDS ORDERED: Simethicone 80 mg Chewtab PO PRN (07:10)
[2018-07-09] MEDS: Enoxaparin 40 mg Syringe SC SCH (09:25)
[2018-07-09] MEDS ORDERED: Bacitracin Ointment 30 GM TUBE TOP SCH (15:30)
--- NOTE | 2018-07-09 21:49 | CP.PCM.CON ---
Past Patient History - Infectious Disease Hx of Infectious Diseases: None - Past Medical History & Family History Past Medical History?: Yes - Past Social History Smoking Status: Never Smoked - CARDIAC Hx Cardiac Disorders: No - PULMONARY Hx Respiratory Disorders: No - NEUROLOGICAL Hx Neurological Disorder: No - HEENT Hx HEENT Problems: No - RENAL Hx Chronic Kidney Disease: No - ENDOCRINE/METABOLIC Hx Endocrine Disorders: No - HEMATOLOGICAL/ONCOLOGICAL Hx Cancer: Yes - MUSCULOSKELETAL/RHEUMATOLOGICAL Hx Falls: No - GASTROINTESTINAL Hx Gastritis: Yes - PSYCHIATRIC Hx Anxiety: Yes Hx Substance Use: No - SURGICAL HISTORY Hx Surgeries: Yes Other/Comment: WISDOM TEETH EXTRACTION. 07-02-18 s/p robotic ultra low anterior colectomy with anastomosis and diverting johnson ileostomy. - ANESTHESIA Hx Anesthesia: Yes Hx Anesthesia Reactions: No Hx Malignant Hyperthermia: No Meds Allergies/Adverse Reactions: Allergies Allergy/AdvReac Type Severity Reaction Status Date / Time No Known Allergies Allergy Verified 06/14/18 09:09 - Medications Medications: Current Medications Alprazolam (Xanax) 0.5 mg PO DAILY PRN PRN Reason: Insomnia Stop: 07/15/18 20:21 Last Admin: 07/09/18 21:27 Dose: 0.5 mg Bacitracin (Bacitracin) 1 gm TOP DAILY [facility] Last Admin: 07/09/18 16:24 Dose: 1 % Enoxaparin Sodium (Lovenox) 40 mg SC DAILY [facility] Last Admin: 07/09/18 09:25 Dose: Not Given Lactated Ringer's (Lactated Ringer's) 1,000 mls @ 100 mls/hr IV .Q10H [facility] Last Admin: 07/09/18 15:47 Dose: Not Given Ketorolac Tromethamine (Toradol) 30 mg IVP Q6H PRN PRN Reason: Pain, moderate (4-7) Last Admin: 07/09/18 18:13 Dose: 30 mg Morphine Sulfate (Morphine) 1 mg IVP Q4 PRN PRN Reason: Pain, severe (8-10) Last Admin: 07/09/18 21:28 Dose: 1 mg Ondansetron HCl (Zofran Inj) 4 mg IVP Q6H PRN PRN Reason: nausea/vomiting Last Admin: 07/09/18 05:22 Dose: 4 mg Simethicone (Mylicon Chew Tab) 80 mg PO TID PRN PRN Reason: GI distress Results - Vital Signs Recent Vital Signs: Last Vital Signs Temp 98.1 F 07/09/18 15:00 Pulse 93 H 07/09/18 15:00 Resp 20 07/09/18 15:00 BP 110/71 07/09/18 15:00 Pulse Ox 99 07/09/18 15:00 - Labs Result Diagrams: 07/08/18 04:41 07/08/18 04:41
[2018-07-10] MEDS: Lactated Ringer's 1,000 ML IV SCH (03:39)
--- NOTE | 2018-07-10 03:48 | CON ---
DATE: 07/09/2018 CHIEF COMPLAINT: Abdominal pain. HISTORY OF PRESENT ILLNESS: This is a 33-year-old white female with recently diagnosed colon cancer, status post resection of the colon. The patient's original tumor was in the sigmoid colon when notes that were removed. The patient underwent this procedure on 06/28/2018 and the patient went home, after couple of days she started having abdominal pain, distention, body aches, tiredness, fever, chills, nausea. No vomiting. She felt weak, she felt chills. No fever. No cough. No sore throat. She had tonsillitis, and according to her, her ileostomy was putting out lot of fecal matter, no blood. The patient denies any abdominal pain upon discharge, but she developed two days later with lack of flatus, generalized weakness, tiredness, anorexia, malaise and fatigue. The patient denies any sneezing, itchy eyes, itchy nose. She denies any history hematuria or pyuria. She denies any history of trauma, fall, loss of consciousness. No seizure like activity. No family history of colon cancer. PAST MEDICAL HISTORY: Colon cancer resection. SOCIAL HISTORY: Nonsmoker, non-ETOH user. CURRENT MEDICATIONS: The patient at home takes Xanax, Percocet, Zofran, biotin. PHYSICAL EXAMINATION: GENERAL: A young female in no acute distress. VITAL SIGNS: Blood pressure 110/71, pulse 93, respiratory rate 20, temperature 98.1. SKIN: No rashes. No purpura. No petechiae. The patient has healing wound on anterior abdominal wall with no rashes. HEENT: Atraumatic and normocephalic. Negative pallor. Negative jaundice. Extraocular movements are intact. NECK: Supple. No JVD. No lymph nodes. No thyromegaly. No carotid bruits. CHEST WALL: Bilateral symmetrical expansion. No tenderness. No . LUNGS: Bilaterally clear. No rales. No rhonchi. CVS: PMI not localized. S1 and S2 regular. ABDOMEN: Soft. Bowel sounds are present, postop with no tenderness. The patient has ileostomy in the right flank area. RECTAL AND PELVIC: Refused. EXTREMITIES: No clubbing, cyanosis or edema. ASSOCIATE [employer] MANAGER: Awake, alert, oriented x3. ASSESSMENT: 1. Colon cancer, rule out paralytic irritable bowel syndrome, rule out intestinal obstruction from colon cancer. 2. Dehydration. 3. Anxiety disorder. PLAN: Admit. Detailed order written. Seen and examined. Gustavo Christian MD
[2018-07-10 06:09] VITALS: BP 118/74; RESP 20
[2018-07-10 06:53] LABS: HEMOGLOBIN 11.5 g/dL (11.0-16.0); MEAN CORPUSCULAR HEMOGLOBIN 29.7 pg (27.0-31.0); MEAN CORPUSCULAR HGB CONC 34.5 g/dL (33.0-37.0); MEAN PLATELET VOLUME 9.5 fL (7.2-11.7); RBC 3.88 Mil/uL (3.80-5.20); RED CELL DISTRIBUTION WIDTH 13.1 % (11.5-14.5); WHITE BLOOD COUNT 4.6 K/uL (4.8-10.8)
[2018-07-10 07:38] LABS: BLOOD UREA NITROGEN 7 mg/dL (7-17); CALCIUM 8.7 mg/dl (8.6-10.4); GFR NON-AFRICAN AMERICAN > 60
[2018-07-10 07:50] VITALS: PULSE 70; TEMP 98.2; O2SAT 97
[2018-07-10] MEDS: Enoxaparin 40 mg Syringe SC SCH (10:46)
--- NOTE | 2018-07-10 16:28 | CP.PCM.PN ---
<Kevin Perera - Last Filed: 07/10/18 16:28> Subjective - Date & Time of Evaluation Date of Evaluation: 07/10/18 Time of Evaluation: 07:00 - Subjective Subjective: Patient seen and examined. No acute events over night. +output into stoma. Denies abdominal pain. Objective - Vital Signs/Intake and Output Vital Signs (last 24 hours): Temp Pulse Resp BP Pulse Ox 98.2 F 70 20 118/74 97 07/10/18 07:00 07/10/18 07:00 07/10/18 07:00 07/10/18 07:00 07/10/18 07:00 Intake and Output: 07/10/18 07/10/18 06:59 18:59 Intake Total 800 350 Output Total 200 Balance 800 150 - Labs Labs: 07/10/18 06:45 07/10/18 06:45 PT 11.6 SECONDS (9.7-12.2) 07/08/18 04:41 INR 1.1 07/08/18 04:41 APTT 36 SECONDS (21-34) H 07/08/18 04:41 - Constitutional Appears: No Acute Distress - Head Exam Head Exam: NORMOCEPHALIC - Eye Exam Eye Exam: Normal appearance - ENT Exam ENT Exam: Mucous Membranes Moist - Respiratory Exam Respiratory Exam: NORMAL BREATHING PATTERN - Cardiovascular Exam Cardiovascular Exam: +S1, +S2 - GI/Abdominal Exam GI & Abdominal Exam: Soft. absent: Tenderness - Neurological Exam Neurological Exam: Alert, Awake, Oriented x3 - Psychiatric Exam Psychiatric exam: Normal Mood - Skin Skin Exam: Dry, Intact, Warm Assessment and Plan - Assessment and Plan (Free Text) Assessment: 33F s/p Robot ultra LAR diverting ileostomy POD 7 presents with post operative ileus Plan: -Liquid diet -Analgesics prn -Anti-emetic prn -Encourage ambulation -DVT ppx -No further surgica intervention required at this present time -Patient to be discharge home -D/w Dr. Richie March PGY3 <Flako Quiroz - Last Filed: 07/10/18 17:43> Objective - Vital Signs/Intake and Output Vital Signs (last 24 hours): Temp Pulse Resp BP Pulse Ox 98.2 F 70 20 118/74 97 07/10/18 07:00 07/10/18 07:00 07/10/18 07:00 07/10/18 07:00 07/10/18 07:00 Intake and Output: 07/10/18 07/10/18 06:59 18:59 Intake Total 800 350 Output Total 200 Balance 800 150 - Labs Labs: 07/10/18 06:45 07/10/18 06:45 PT 11.6 SECONDS (9.7-12.2) 07/08/18 04:41 INR 1.1 07/08/18 04:41 APTT 36 SECONDS (21-34) H 07/08/18 04:41 Attending/Attestation - Attestation I have fully participated in the care of the patient.: Yes I have reviewed all pertinent clinical information, including history, physical exam and plan: Yes Notes (Text): Pt is improved clinically DC plan f.u in office as out pt Avoid narcotics Plan d.w pt in detail
--- NOTE | 2018-07-10 18:21 | CP.PCM.PN ---
Subjective - Date & Time of Evaluation Date of Evaluation: 07/09/18 Time of Evaluation: 06:45 - Subjective Subjective: Gen Sx: Dr Quiroz Pt S&E. NAEO. Passing flatus. Having ostomy output. Denies pain, n/v. Requesting diet. Objective - Vital Signs/Intake and Output Vital Signs (last 24 hours): Temp Pulse Resp BP Pulse Ox 98.2 F 70 20 118/74 97 07/10/18 07:00 07/10/18 07:00 07/10/18 07:00 07/10/18 07:00 07/10/18 07:00 Intake and Output: 07/10/18 07/10/18 06:59 18:59 Intake Total 800 350 Output Total 200 Balance 800 150 - Labs Labs: 07/10/18 06:45 07/10/18 06:45 PT 11.6 SECONDS (9.7-12.2) 07/08/18 04:41 INR 1.1 07/08/18 04:41 APTT 36 SECONDS (21-34) H 07/08/18 04:41 - Constitutional Appears: Non-toxic - ENT Exam ENT Exam: Mucous Membranes Moist - Respiratory Exam Respiratory Exam: absent: Accessory Muscle Use, Respiratory Distress - Cardiovascular Exam Cardiovascular Exam: REGULAR RHYTHM - GI/Abdominal Exam GI & Abdominal Exam: Soft. absent: Distended, Rigid, Tenderness - Neurological Exam Neurological Exam: Alert, Awake, Oriented x3 - Psychiatric Exam Psychiatric exam: Normal Affect Assessment and Plan - Assessment and Plan (Free Text) Assessment: 33F with post-op ileus; resolving Plan: adv to CLd continue to monitor abdominal exam replete electrolytes Bria, PGY4
--- NOTE | 2018-07-10 22:17 | CP.PCM.CON ---
Past Patient History - Infectious Disease Hx of Infectious Diseases: None - Past Medical History & Family History Past Medical History?: Yes - Past Social History Smoking Status: Never Smoked - CARDIAC Hx Cardiac Disorders: No - PULMONARY Hx Respiratory Disorders: No - NEUROLOGICAL Hx Neurological Disorder: No - HEENT Hx HEENT Problems: No - RENAL Hx Chronic Kidney Disease: No - ENDOCRINE/METABOLIC Hx Endocrine Disorders: No - HEMATOLOGICAL/ONCOLOGICAL Hx Cancer: Yes - MUSCULOSKELETAL/RHEUMATOLOGICAL Hx Falls: No - GASTROINTESTINAL Hx Gastritis: Yes - PSYCHIATRIC Hx Anxiety: Yes Hx Substance Use: No - SURGICAL HISTORY Hx Surgeries: Yes Other/Comment: WISDOM TEETH EXTRACTION. 07-02-18 s/p robotic ultra low anterior colectomy with anastomosis and diverting johnson ileostomy. - ANESTHESIA Hx Anesthesia: Yes Hx Anesthesia Reactions: No Hx Malignant Hyperthermia: No Meds Allergies/Adverse Reactions: Allergies Allergy/AdvReac Type Severity Reaction Status Date / Time No Known Allergies Allergy Verified 06/14/18 09:09 Results - Vital Signs Recent Vital Signs: Last Vital Signs Temp 98.2 F 07/10/18 07:00 Pulse 70 07/10/18 07:00 Resp 20 07/10/18 07:00 BP 118/74 07/10/18 07:00 Pulse Ox 97 07/10/18 07:00 - Labs Result Diagrams: 07/10/18 06:45 07/10/18 06:45 Labs: Laboratory Results - last 24 hr 07/10/18 07/10/18 06:45 06:45 WBC 4.6 L RBC 3.88 Hgb 11.5 D Hct 33.4 L MCV 86.0 MCH 29.7 MCHC 34.5 RDW 13.1 Plt Count 214 MPV 9.5 Sodium 137 Potassium 3.9 Chloride 103 Carbon Dioxide 26 Anion Gap 12 BUN 7 Creatinine 0.5 L Est GFR ( Amer) > 60 Est GFR (Non-Af Amer) > 60 Random Glucose 78 Calcium 8.7 Phosphorus 3.2 Magnesium 1.7
--- NOTE | 2018-07-11 06:48 | PN ---
DATE: 07/10/2018 SUBJECTIVE: The patient is feeling better. She is status post bowel movement. She is afebrile. Decreased abdominal pain. No nausea or vomiting. Moving bowels. PHYSICAL EXAMINATION: VITAL SIGNS: Blood pressure is 118/74, pulse 70, respiratory rate 20, temperature 98.2. LUNGS: Clear. CVS: S1, S2, regular. ABDOMEN: Soft. ASSESSMENT: 1. Colon cancer, status post paralytic irritable bowel syndrome, resolved. 2. Dehydration, resolved. PLAN: Discharge the patient as per Surgery. Follow up with Surgery on outpatient basis. Gustavo Christian MD
== END 2018-07-10 15:00 | disposition home or self-care (01) ==
LOC: C.ER 03:52 → C.9E 09:02 → C.5S 10:29 → C.6T 07-09 13:15
PROVIDERS: ADMIT Surgery Surgical Critical Care; ATTEND Surgery Surgical Critical Care
DX: K56.7 Ileus, unspecified (principal); K58.8 Other irritable bowel syndrome; E86.0 Dehydration; F41.9 Anxiety disorder, unspecified; C18.9 Malignant neoplasm of colon, unspecified
CPT/HCPCS: 36415; 74022; 80048; 80053; 81001; 82803; 83690; 83735; 84100; 85025; 85027; 85610; 85730; 96374; 99285; G0378; J1885; J2270; J2405; J7030; J7120

== ENCOUNTER 2018-09-10 06:09 | Inpatient (IN) | payer OTHER ==
[2018-09-10] MEDS ORDERED: ceFAZolin IV 1 gm in Dextrose 2 GM/100 ML BAG IVPB ONE (07:15)
[2018-09-10] MEDS ORDERED: Bupivacaine HCl 0.25% PF (30 ml) Inj ONE (07:15)
[2018-09-10] MEDS ORDERED: metroNIDAZOLE IV 500 mg/100 ml 500 MG/100 ML BAG ONE (07:16)
[2018-09-10] MEDS ORDERED: Lidocaine/Epinephrine 1% 1:100000 10 ML IJ ONE (07:16)
[2018-09-10] MEDS ORDERED: Propofol 10 mg/ml Inj (20 ML) ONE (07:17)
[2018-09-10] MEDS ORDERED: Midazolam 2 MG/2 ML VIAL ONE (07:17)
[2018-09-10] MEDS ORDERED: Lidocaine 4% (Laryng-O-Jet) Kit MM ONE (07:55)
[2018-09-10] MEDS ORDERED: Bupivacaine 0.5% Inj(30mL) IJ ONE (08:45)
[2018-09-10] MEDS ORDERED: Rocuronium 10 mg/ml (5 ml) ONE (08:55)
[2018-09-10] MEDS ORDERED: Morphine 4 MG/ML VIAL ONE (09:12)
[2018-09-10] MEDS ORDERED: Neostigmine Methylsulfate 3mg/3ml Syringe IV ONE (10:12)
[2018-09-10] MEDS: HYDROmorphone 0.5 mg/0.5 ml ISec IVP PRN ×8 (10:55→22:07)
[2018-09-10] MEDS ORDERED: BUPIVACAINE 0.125%/0.9% NACL 600 ML IJ ONE (10:56)
[2018-09-10] MEDS ORDERED: HYDROmorphone 0.5 mg/0.5 ml ISec ONE ×2 (10:58→11:02)
[2018-09-10] MEDS ORDERED: Lactated Ringer's 1,000 ML IV SCH (11:00)
--- NOTE | 2018-09-10 11:08 | PCM.SURG1 ---
Surgeon's Initial Post Op Note - Surgeon's Notes Surgeon: Dr. Quiroz [id number] Analyst: Kaitlyn Dickson Type of Anesthesia: General Endo Pre-Operative Diagnosis: Diverting Ileostomy s/p LAR Operative Findings: See operative report Post-Operative Diagnosis: Same Operation Performed: Reversal of Ileostomy & Diagnostic Laparoscopy Specimen/Specimens Removed: part of ileum from ostomy site Estimated Blood Loss: EBL {In ML}: 20 Blood Products Given: N/A Drains Used: No Drains Post-Op Condition: Good Date of Surgery/Procedure: 09/10/18 Time of Surgery/Procedure: 11:08
[2018-09-10] MEDS: Piperacillin/Tazobact 3.375 GM in Sodium Chloride 100 ML IVPB SCH ×3 (12:00→23:55)
[2018-09-10 13:17] LABS: ALB/GLOB RATIO 1.4 (1.0-2.1); ALBUMIN 3.6 g/dL (3.5-5.0); ALT/SGPT 33 U/L (9-52); AST/SGOT 25 U/L (14-36); BLOOD UREA NITROGEN 11 mg/dL (7-17); CALCIUM 8.6 mg/dl (8.6-10.4); GFR NON-AFRICAN AMERICAN > 60
[2018-09-10] MEDS ORDERED: Lactated Ringer's 1,000 ML IV ONE (15:00)
--- NOTE | 2018-09-11 00:03 | OP ---
PROCEDURE DATE: 09/10/2018 PREOPERATIVE DIAGNOSES: 1. Ileostomy status. 2. Rectal cancer, status post low anterior resection. 3. Possible postoperative peritoneal adhesion. POSTOPERATIVE DIAGNOSES: 1. Ileostomy status. 2. Rectal cancer, status post low anterior resection. 3. Possible postoperative peritoneal adhesion. PROCEDURES DONE: 1. Laparoscopic exploration and enterolysis. 2. Ileostomy reversal and small bowel anastomosis. 3. Open enterolysis and lysis of adhesion. 4. Laparoscopic bilateral ON-Q Pain catheter pump placement. 5. Removal of old sutures from lower midline incision. SURGEON: Flako Quiroz MD ASSISTANTS: OLAF Stallings; and Shaye Guardado DO, PGY-3 Resident. TYPE OF ANESTHESIA: General endotracheal tube anesthesia. ESTIMATED BLOOD LOSS: Around 10 mL. DRAINS: None. PATHOLOGY: The loop of ileum with part of small bowel was sent for the pathology. COMPLICATIONS: None. INTRAOPERATIVE FINDINGS: The patient had no adhesions in the pelvis as well as in the right lower quadrant and the loop of the ileum was firmly adhesed to the anterior abdominal wall and extensive lysis of adhesions was done to detach the loop of the ileum and the [id number] anastomosis was done. DESCRIPTION OF PROCEDURE: On intraoperative steps, this 33-year-old female was diagnosed with rectal cancer and the patient underwent robotic LAR as well as loop ileostomy. After 11 weeks, the patient was consented for the ileostomy reversal with laparoscopic assistance, brought to the OR, placed supine on operating table. After induction of anesthesia, the abdomen was prepped and draped in usual sterile fashion. An elliptical incision was made surrounding the ileostomy site and dissection was carried down deep up to the fascia. The port was placed, pneumo was created. Two 5 mm ports were placed in the right upper quadrant as well as the left upper quadrant and laparoscopic exploration was done. The patient had no adhesions beside the ileostomy site adhesion and there was no collection in the pelvis. The pelvic anastomosis appeared normal and intact. After that, the loop of the ileum that was attached to the anterior abdominal wall was and lysis of adhesion was done. The small intestine on the both side of the loop was resected and the [id number] anastomosis was done. Anastomosis was patent, viable, and it was without under tension. Anastomosis was placed back into the peritoneal cavity and again the pneumo was created. The laparoscopic bilateral ON-Q pain catheter pump was placed bilaterally. After that, the ileostomy site wound was closed in multiple layers, the peritoneum with 0 Vicryl, muscles with #1 PDS, as well as interrupted #1 Prolene sutures, the subcu with 2-0 Vicryl, and skin with 4-0 Monocryl and all the port sites. Ileostomy site was also packed with iodoform packing to prevent any infection. Dry sterile dressing was applied. The patient was extubated in OR and sent to the Postanesthesia Care Unit in stable condition. There were no apparent complications. Flako Quiroz MD
[2018-09-11 00:12] VITALS: RESP 20
[2018-09-11] MEDS: HYDROmorphone 0.5 mg/0.5 ml ISec IVP PRN ×3 (01:52→16:12)
[2018-09-11] MEDS: Piperacillin/Tazobact 3.375 GM in Sodium Chloride 100 ML IVPB SCH ×4 (05:32→23:50)
[2018-09-11 08:30] LABS: BASO % 0.6 % (0.0-2.0); EOS % 0.3 % (0.0-4.0); MEAN CELL VOLUME 86.9 fL (81.0-99.0); MEAN CORPUSCULAR HEMOGLOBIN 29.5 pg (27.0-31.0); MEAN CORPUSCULAR HGB CONC 33.9 g/dL (33.0-37.0); MEAN PLATELET VOLUME 11.1 fL (7.2-11.7); MONO # 0.8 K/uL (0.0-0.8); MONO % 10.6 % (0.0-10.0); NEUT # 4.7 K/uL (1.8-7.0); NEUT % 62.5 % (50.0-75.0); RBC 3.71 Mil/uL (3.80-5.20); RED CELL DISTRIBUTION WIDTH 13.5 % (11.5-14.5)
[2018-09-11 08:35] LABS: HEMOGLOBIN 10.9 g/dL (11.0-16.0); WHITE BLOOD COUNT 7.5 K/uL (4.8-10.8)
[2018-09-11 08:45] LABS: BLOOD UREA NITROGEN 12 mg/dL (7-17); CALCIUM 8.3 mg/dl (8.6-10.4); GFR NON-AFRICAN AMERICAN > 60
[2018-09-11] MEDS ORDERED: Influenza Vaccine 60 MCG/0.5 ML SYR (3 yr & up) IM ONE (09:12)
[2018-09-11] MEDS ORDERED: Enoxaparin 40 mg Syringe SC SCH (10:00)
--- NOTE | 2018-09-11 10:14 | CP.PCM.DIS ---
Provider - Provider Date of Admission: 09/10/18 10:59 Attending physician: Flako Quiroz MD Time Spent in preparation of Discharge (in minutes): 35 Diagnosis - Discharge Diagnosis (1) Ileostomy present Status: Resolved (2) Colorectal cancer Status: Resolved Hospital Course - Lab Results Lab Results: Most Recent Lab Values WBC 7.5 K/uL (4.8-10.8) D 09/11/18 08:21 RBC 3.71 Mil/uL (3.80-5.20) L 09/11/18 08:21 Hgb 10.9 g/dL (11.0-16.0) L D 09/11/18 08:21 Hct 32.3 % (34.0-47.0) L 09/11/18 08:21 MCV 86.9 fL (81.0-99.0) 09/11/18 08:21 MCH 29.5 pg (27.0-31.0) 09/11/18 08:21 MCHC 33.9 g/dL (33.0-37.0) 09/11/18 08:21 RDW 13.5 % (11.5-14.5) 09/11/18 08:21 Plt Count 147 K/uL (130-400) 09/11/18 08:21 MPV 11.1 fL (7.2-11.7) 09/11/18 08:21 Neut % (Auto) 62.5 % (50.0-75.0) 09/11/18 08:21 Lymph % (Auto) 26.0 % (20.0-40.0) 09/11/18 08:21 [place] % (Auto) 10.6 % (0.0-10.0) H 09/11/18 08:21 Eos % (Auto) 0.3 % (0.0-4.0) 09/11/18 08:21 Baso % (Auto) 0.6 % (0.0-2.0) 09/11/18 08:21 Neut # (Auto) 4.7 K/uL (1.8-7.0) 09/11/18 08:21 Lymph # (Auto) 2.0 K/uL (1.0-4.3) 09/11/18 08:21 [place] # (Auto) 0.8 K/uL (0.0-0.8) 09/11/18 08:21 Eos # (Auto) 0.0 K/uL (0.0-0.7) 09/11/18 08:21 Baso # (Auto) 0.0 K/uL (0.0-0.2) 09/11/18 08:21 Sodium 134 mmol/L (132-148) 09/11/18 08:21 Potassium 3.9 mmol/L (3.6-5.2) 09/11/18 08:21 Chloride 101 mmol/L (98-107) 09/11/18 08:21 Carbon Dioxide 24 mmol/L (22-30) 09/11/18 08:21 Anion Gap 13 (10-20) 09/11/18 08:21 BUN 12 mg/dL (7-17) 09/11/18 08:21 Creatinine 0.7 mg/dL (0.7-1.2) 09/11/18 08:21 Est GFR ( Amer) > 60 09/11/18 08:21 Est GFR (Non-Af Amer) > 60 09/11/18 08:21 Random Glucose 74 mg/dL (65-105) 09/11/18 08:21 Calcium 8.3 mg/dl (8.6-10.4) L 09/11/18 08:21 Phosphorus 3.9 mg/dL (2.5-4.5) 09/10/18 12:55 Magnesium 1.6 mg/dL (1.6-2.3) 09/10/18 12:55 Total Bilirubin 1.0 mg/dL (0.2-1.3) 09/10/18 12:55 AST 25 U/L (14-36) 09/10/18 12:55 ALT 33 U/L (9-52) 09/10/18 12:55 Alkaline Phosphatase 48 U/L (38-126) 09/10/18 12:55 Total Protein 6.1 g/dL (6.3-8.3) L 09/10/18 12:55 Albumin 3.6 g/dL (3.5-5.0) 09/10/18 12:55 Globulin 2.5 gm/dL (2.2-3.9) 09/10/18 12:55 Albumin/Globulin Ratio 1.4 (1.0-2.1) 09/10/18 12:55 Blood Type O POSITIVE 09/10/18 07:02 Antibody Screen Negative 09/10/18 07:02 - Hospital Course Hospital Course: This 33F presented on 09/10/18 for an elective ileostomy reversal with a diagnostic laparoscopy. On the evening of POD0 she tolerated sips and ice chips and POD1 she was advanced to clears. She reports that her pain is well controlled. No SOB or chest pain, no new complaints. She reports she feels ready to be discharged. Discharge Exam - Head Exam Head Exam: ATRAUMATIC, NORMOCEPHALIC - Eye Exam Eye Exam: EOMI, Normal appearance - Respiratory Exam Respiratory Exam: NORMAL BREATHING PATTERN, UNREMARKABLE - Cardiovascular Exam Cardiovascular Exam: +S1, +S2 - GI/Abdominal Exam Additional comments: Soft appropriate post operative tenderness. Dressings clean dry and intact. - Neurological Exam Neurological exam: Alert, Oriented x3 - Psychiatric Exam Psychiatric exam: Normal Affect, Normal Mood - Skin Skin Exam: Dry, Intact Discharge Plan - Follow Up Plan Condition: GOOD Disposition: HOME/ ROUTINE Patient education suggested?: Yes Instructions: Ostomy Reversal
[2018-09-11 10:15] VITALS: BMI 19.5
--- NOTE | 2018-09-11 15:25 | CP.PCM.PN ---
Subjective - Date & Time of Evaluation Date of Evaluation: 09/11/18 Time of Evaluation: 15:22 - Subjective Subjective: General Surgery Progress Note for Dr. Quiroz This 33F was seen and examined this AM at bedside. No acute events reported overnight. She is tolerated CLD, she is passing gas. Pain is well controlled. She denies any SOB or chest pain. No new complaints at this time. Objective - Vital Signs/Intake and Output Vital Signs (last 24 hours): Temp Pulse Resp BP Pulse Ox 99.0 F 72 20 103/68 98 09/11/18 07:00 09/11/18 07:00 09/11/18 07:00 09/11/18 07:00 09/11/18 07:00 Intake and Output: 09/11/18 09/11/18 06:59 18:59 Intake Total 1000 1100 Output Total 720 Balance 280 1100 - Medications Medications: Current Medications Acetaminophen (Tylenol 325mg Tab) 650 mg PO Q6 PRN PRN Reason: Pain, Mild (1-3) Alprazolam (Xanax) 0.5 mg PO DAILY PRN PRN Reason: Insomnia Stop: 09/17/18 11:10 Last Admin: 09/10/18 23:55 Dose: 0.5 mg Enoxaparin Sodium (Lovenox) 40 mg SC DAILY MALCOM Last Admin: 09/11/18 12:50 Dose: Not Given Hydromorphone HCl (Dilaudid) 0.5 mg IVP Q4H PRN PRN Reason: Pain, severe (8-10) Last Admin: 09/11/18 09:55 Dose: 0.5 mg BUPIVACAINE 0.125%/0.9% NACL (Bupivacaine-Ns 0.125% On-Q Cooker Process Cheese) 600 mls @ 4 mls/hr IJ ONCE ONE Stop: 09/16/18 16:55 Last Admin: 09/10/18 12:15 Dose: 0 mls Lactated Ringer's (Lactated Ringer's) 1,000 mls @ 100 mls/hr IV .Q10H MALCOM Stop: 09/12/18 11:01 Last Admin: 09/11/18 10:04 Dose: 100 mls/hr Piperacillin Sod/Tazobactam (Sod 3.375 gm/ Sodium Chloride) 100 mls @ 200 mls/hr IVPB Q6H MALCOM; Protocol Last Admin: 09/11/18 10:22 Dose: 200 mls/hr Ketorolac Tromethamine (Toradol) 30 mg IVP Q6 PRN PRN Reason: Pain, moderate (4-7) Last Admin: 09/11/18 13:11 Dose: 30 mg Ondansetron HCl (Zofran Inj) 4 mg IV Q4 PRN PRN Reason: Nausea/Vomiting Last Admin: 09/11/18 09:56 Dose: 4 mg - Labs Labs: 09/11/18 08:21 09/11/18 08:21 - Constitutional Appears: Non-toxic, No Acute Distress - Head Exam Head Exam: ATRAUMATIC, NORMOCEPHALIC - Eye Exam Eye Exam: EOMI - ENT Exam ENT Exam: Mucous Membranes Moist - Respiratory Exam Respiratory Exam: NORMAL BREATHING PATTERN - Cardiovascular Exam Cardiovascular Exam: +S1, +S2 - GI/Abdominal Exam GI & Abdominal Exam: Soft, Tenderness (apropriatly tender). absent: Firm, Guarding, Rigid - Neurological Exam Neurological Exam: Alert, Awake - Psychiatric Exam Psychiatric exam: Normal Affect, Normal Mood - Skin Skin Exam: Dry, Intact Assessment and Plan (1) Ileostomy present Status: Resolved - Assessment and Plan (Free Text) Assessment: 33F POD#1 s/p ileostomy reversal and doing well Advance to full liquid diet Continue abx Monitor bowel function Discussed with Dr. Richie Galarza PGY3
[2018-09-11 16:49] VITALS: PULSE 73; TEMP 98.4
[2018-09-12 04:20] VITALS: BP 111/71
[2018-09-12 05:09] VITALS: O2SAT 98
[2018-09-12] MEDS: Piperacillin/Tazobact 3.375 GM in Sodium Chloride 100 ML IVPB SCH (05:30)
--- NOTE | 2018-09-12 08:01 | CP.PCM.DIS ---
Provider - Provider Date of Admission: 09/10/18 10:59 Attending physician: Flako Quiroz MD Time Spent in preparation of Discharge (in minutes): 45 Diagnosis - Discharge Diagnosis (1) Status post reversal of ileostomy Status: Acute Hospital Course - Lab Results Lab Results: Most Recent Lab Values WBC 7.5 K/uL (4.8-10.8) D 09/11/18 08:21 RBC 3.71 Mil/uL (3.80-5.20) L 09/11/18 08:21 Hgb 10.9 g/dL (11.0-16.0) L D 09/11/18 08:21 Hct 32.3 % (34.0-47.0) L 09/11/18 08:21 MCV 86.9 fL (81.0-99.0) 09/11/18 08:21 MCH 29.5 pg (27.0-31.0) 09/11/18 08:21 MCHC 33.9 g/dL (33.0-37.0) 09/11/18 08:21 RDW 13.5 % (11.5-14.5) 09/11/18 08:21 Plt Count 147 K/uL (130-400) 09/11/18 08:21 MPV 11.1 fL (7.2-11.7) 09/11/18 08:21 Neut % (Auto) 62.5 % (50.0-75.0) 09/11/18 08:21 Lymph % (Auto) 26.0 % (20.0-40.0) 09/11/18 08:21 [place] % (Auto) 10.6 % (0.0-10.0) H 09/11/18 08:21 Eos % (Auto) 0.3 % (0.0-4.0) 09/11/18 08:21 Baso % (Auto) 0.6 % (0.0-2.0) 09/11/18 08:21 Neut # (Auto) 4.7 K/uL (1.8-7.0) 09/11/18 08:21 Lymph # (Auto) 2.0 K/uL (1.0-4.3) 09/11/18 08:21 [place] # (Auto) 0.8 K/uL (0.0-0.8) 09/11/18 08:21 Eos # (Auto) 0.0 K/uL (0.0-0.7) 09/11/18 08:21 Baso # (Auto) 0.0 K/uL (0.0-0.2) 09/11/18 08:21 Sodium 134 mmol/L (132-148) 09/11/18 08:21 Potassium 3.9 mmol/L (3.6-5.2) 09/11/18 08:21 Chloride 101 mmol/L (98-107) 09/11/18 08:21 Carbon Dioxide 24 mmol/L (22-30) 09/11/18 08:21 Anion Gap 13 (10-20) 09/11/18 08:21 BUN 12 mg/dL (7-17) 09/11/18 08:21 Creatinine 0.7 mg/dL (0.7-1.2) 09/11/18 08:21 Est GFR ( Amer) > 60 09/11/18 08:21 Est GFR (Non-Af Amer) > 60 09/11/18 08:21 Random Glucose 74 mg/dL (65-105) 09/11/18 08:21 Calcium 8.3 mg/dl (8.6-10.4) L 09/11/18 08:21 Phosphorus 3.9 mg/dL (2.5-4.5) 09/10/18 12:55 Magnesium 1.6 mg/dL (1.6-2.3) 09/10/18 12:55 Total Bilirubin 1.0 mg/dL (0.2-1.3) 09/10/18 12:55 AST 25 U/L (14-36) 09/10/18 12:55 ALT 33 U/L (9-52) 09/10/18 12:55 Alkaline Phosphatase 48 U/L (38-126) 09/10/18 12:55 Total Protein 6.1 g/dL (6.3-8.3) L 09/10/18 12:55 Albumin 3.6 g/dL (3.5-5.0) 09/10/18 12:55 Globulin 2.5 gm/dL (2.2-3.9) 09/10/18 12:55 Albumin/Globulin Ratio 1.4 (1.0-2.1) 09/10/18 12:55 Blood Type O POSITIVE 09/10/18 07:02 Antibody Screen Negative 09/10/18 07:02 - Hospital Course Hospital Course: 33 F w colon CA had robotic colectomy w ileostomy. Pt came to [facility] for ileostomy reversal. Pt tolerated the procedure well. Had BM and voided freely. Pain controlled. Denies fever, nausea, vomiting. Pt was on ABX. Ambulates w/o difficulty. Instructed to follow up Discharge Exam - Head Exam Head Exam: ATRAUMATIC, NORMOCEPHALIC - Eye Exam Eye Exam: EOMI - Neck Exam Neck exam: Full Rom - Respiratory Exam Respiratory Exam: NORMAL BREATHING PATTERN - Cardiovascular Exam Cardiovascular Exam: REGULAR RHYTHM - GI/Abdominal Exam GI & Abdominal Exam: Soft. absent: Distended, Firm, Hernia, Rebound, Rigid, Tenderness - Exam Exam: NORMAL INSPECTION - Extremities Exam Extremities exam: full ROM - Neurological Exam Neurological exam: Normal Gait, Oriented x3 - Psychiatric Exam Psychiatric exam: Normal Affect, Normal Mood - Skin Skin Exam: Dry, Intact, Warm Additional comments: Incisions C/D/I Discharge Plan - Discharge Medications Prescriptions: levoFLOXacin [Levaquin] 500 mg PO DAILY #7 tab - Follow Up Plan Condition: GOOD Disposition: HOME/ ROUTINE Instructions: Full Liquid Diet, Ostomy Reversal, Managing Pain After Surgery, On Q Pain Pump Referrals: Flako Quiroz MD [Staff Provider] -
== END 2018-09-12 07:50 | disposition left against medical advice (07) | DRG 337 ==
LOC: C.SDS 06:09 → C.9S 10:59 → C.6T 17:30
PROVIDERS: ADMIT Surgery Surgical Critical Care; ATTEND Surgery Surgical Critical Care
PROC: 0DBB4ZZ Excision of Ileum, Percutaneous Endoscopic Approach (ICD-10-PCS; 2018-09-10)
PROC: 0DNB0ZZ Release Ileum, Open Approach (ICD-10-PCS; principal; 2018-09-10 07:30)
DX: Z43.2 Encounter for attention to ileostomy (principal); K66.0 Peritoneal adhesions (postprocedural) (postinfection)